=== PATIENT | female | born 1960 | race Caucasian/White ===

== ENCOUNTER 2017-08-18 03:41 | Emergency (ER) | payer MEDICAID ==
[2017-08-18] MEDS ORDERED: traMADol 50 MG Tab PO ONE (04:02)
[2017-08-18] MEDS ORDERED: Sodium Chloride 0.9% 10 ML Syringe FLUSH PRN (04:04)
[2017-08-18] MEDS ORDERED: Furosemide 80 MG Tab PO ONE (04:05)
[2017-08-18] MEDS ORDERED: Acetaminophen 325 MG Tab, 50 Tab Bulk Bottle PO ONE (04:07)
[2017-08-18] MEDS ORDERED: Diltiazem 120 MG Cap.CD PO ONE (04:07)
[2017-08-18] MEDS ORDERED: Aspirin 81 MG Tab.Chew PO ONE (04:07)
[2017-08-18] MEDS ORDERED: Lisinopril 10 MG Tab PO ONE (04:08)
[2017-08-18] MEDS ORDERED: Warfarin 2.5 MG Tab PO ONE (04:08)
[2017-08-18] MEDS ORDERED: Hydrochlorothiazide 12.5 MG Cap PO STA (04:09)
[2017-08-18] MEDS ORDERED: Carvedilol 6.25 MG Tab PO ONE (04:09)
--- NOTE | 2017-08-18 04:15 | EDM.PDOC ---
ED HPI GENERAL MEDICAL PROBLEM - General Chief Complaint: Respiratory Problem Stated Complaint: MEDICAL [facility]IA [facility] Time Seen by Provider: 08/18/17 03:55 Source of Information: Reports: Patient, EMS, Old Records History Limitations: Reports: Other (poor historian) - History of Present Illness INITIAL COMMENTS - FREE TEXT/NARRATIVE: 56 yo female here via EMS from her home with SOB mainly with exertion. Says she hasn't taken any of her meds because she is too SOB with exertion to look. No fever. No cough. Her chronic back pain is worse due to not taking her meds. Is on home oxygen, but still smokes, although not in the past 3 days. Has COPD and CHF and Afib. Lives with her who is in worse shape than her. Has been significantly more SOB for 3 days, but has not notified her primary. Onset: Gradual Onset Date: 08/15/17 Duration: Day(s):, Constant Location: Reports: Chest Severity: Mild Improves with: Reports: Rest Worsens with: Reports: Movement Context: Reports: Other (CHF and COPD hx) Associated Symptoms: Reports: Shortness of Breath (dionicio with exertion) Treatments CORRECTIONS CORPORAL: Reports: Breathing Treatments (per EMS with minimal benefit) Generalized Pain Score (Numeric/FACES): 6 - Related Data Allergies Allergy/AdvReac Type Severity Reaction Status Date / Time codeine Allergy Hives Verified 09/24/13 14:46 Home Meds: Home Meds Aspirin [Low Dose Aspirin EC] 81 mg PO DAILY 09/24/13 [History] Carvedilol [Coreg] 6.25 mg PO BID #60 tablet 02/13/15 [Rx] Diltiazem HCl [Diltiazem 24Hr Cd] 240 mg PO DAILY #30 cap.er.24h 02/13/15 [Rx] traZODone HCl [Trazodone HCl] 100 mg PO BEDTIME #30 tablet 02/13/15 [Rx] Gabapentin [Neurontin] 800 mg PO TID 03/25/15 [History] Acetaminophen 650 mg PO Q4H PRN #100 tablet 03/30/15 [Rx] Cyclobenzaprine [Flexeril] 10 mg PO BEDTIME PRN 06/02/15 [History] Ergocalciferol (Vitamin D2) [Drisdol] 50,000 unit PO .QW 06/02/15 [History] Lisinopril/Hydrochlorothiazide [Lisinopril-Hctz 10-12.5 mg Tab] 10 - 12.5 mg PO DAILY 06/02/15 [History] Venlafaxine [Effexor XR] 150 mg PO DAILY 06/02/15 [History] traMADol [Ultram] 50 mg PO Q6H PRN 06/02/15 [History] Albuterol Sulfate [Proair Hfa] 1 - 2 puff INH Q4H PRN 12/17/15 [History] Albuterol/Ipratropium [Combivent Respimat] 20 - 100 mcg INH QID PRN 12/17/15 [ History] Dextromethorphan/guaiFENesin [Robitussin DM] 5 ml PO TID 12/17/15 [History] Dextromethorphan/guaiFENesin [Robitussin Peak Cold DM, Adult] 5 ml PO Q4HR PRN 12/17/15 [History] Triamcinolone Acetonide [Kenalog 0.1% Crm] 0.1 percent TOP TID 12/17/15 [History ] Warfarin Sodium [Coumadin] 7.5 mg PO WE 12/17/15 [History] Warfarin [Coumadin] 5 mg PO SUMOTUTHFRSA 12/17/15 [History] clonazePAM [Klonopin] 0.5 mg PO TID 12/17/15 [History] Furosemide 80 mg PO DAILY #30 tablet 08/10/16 [Rx] Past Medical History Cardiovascular History: Reports: Afib, Hypertension Respiratory History: Reports: COPD Genitourinary History: Reports: UTI, Recurrent 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: Musculoskeletal History: Reports: Back Pain, Chronic Psychiatric History: Reports: PTSD Endocrine/Metabolic History: Reports: Hypothyroidism - Infectious Disease History Infectious Disease History: Reports: Chicken Pox - Past Surgical History GI Surgical History: Reports: Appendectomy, Cholecystectomy Female Surgical History: Reports: Tubal Ligation Endocrine Surgical History: Reports: Thyroidectomy Musculoskeletal Surgical History: Reports: Other (See Below) Dermatological Surgical History: Reports: Other (See Below) Social & Family History - Tobacco Use Smoking Status *Q: Current Every Day Smoker Years of Tobacco use: 35 Packs/Tins Daily: 0.5 Used Tobacco, but Quit: Yes Month Tobacco Last Used: Second Hand Smoke Exposure: No - Caffeine Use Caffeine Use: Reports: Coffee, Soda, Tea - Alcohol Use Days Per Week of Alcohol Use: 0 Number of Drinks Per Day: 1 Total Drinks Per Week: 0 - Recreational Drug Use Recreational Drug Use: No Drug Use in Last 12 Months: Yes Recreational Drug Type: Reports: Other (see below) Recreational Drug Use Frequency: Not Used In Over 5 Months ED ROS GENERAL - Review of Systems Review Of Systems: See Below Constitutional: Reports: No Symptoms. Denies: Fever HEENT: Reports: No Symptoms Respiratory: Reports: Shortness of Breath Cardiovascular: Reports: Dyspnea on Exertion Endocrine: Reports: No Symptoms GI/Abdominal: Reports: No Symptoms : Reports: No Symptoms Musculoskeletal: Reports: Back Pain (chronic) Skin: Reports: No Symptoms Neurological: Reports: No Symptoms Psychiatric: Reports: No Symptoms ED EXAM, GENERAL - Physical Exam Exam: See Below Exam Limited By: No Limitations General Appearance: Alert, WD/WN, No Apparent Distress, Obese Eye Exam: Bilateral Eye: Normal Inspection Ears: Normal External Exam, Normal Canal, Hearing Grossly Normal Ear Exam: Bilateral Ear: Auricle Normal, Canal Normal Nose: Normal Inspection, Normal Mucosa, No Blood Throat/Mouth: Normal Inspection, Normal Lips, Normal Oropharynx, Normal Voice, No Airway Compromise, Other (edentulous) Head: Atraumatic, Normocephalic Neck: Normal Inspection Respiratory/Chest: No Respiratory Distress, No Accessory Muscle Use, Decreased Breath Sounds (especially at bases) Cardiovascular: Irregularly Irregular GI/Abdominal: Normal Bowel Sounds, Soft, Non-Tender, No Distention Back Exam: Normal Inspection. No: CVA Tenderness (R), CVA Tenderness (L) Extremities: Pedal Edema Neurological: Alert, Oriented, CN II-XII Intact, Normal Cognition, No Motor/ Sensory Deficits Psychiatric: Normal Affect, Normal Mood Skin Exam: Warm, Dry, Intact, Normal Color Lymphatic: No Adenopathy Course - Vital Signs Last Recorded V/S: Last Vital Signs Temp 37.1 C 08/18/17 03:46 Pulse 98 08/18/17 04:43 Resp 20 08/18/17 03:46 BP 159/86 H 08/18/17 06:05 Pulse Ox 93 L 08/18/17 06:05 - Orders/Labs/Meds Orders: Active Orders 24 hr Category Date Time Status Chest 1V Frontal [CR] Stat Exams 08/18/17 04:03 Taken Sodium Chloride 0.9% [Saline Flush] Med 08/18/17 04:04 Active 10 ml FLUSH ASDIRECTED PRN Venlafaxine [Effexor XR] Med 08/18/17 05:00 Active 150 mg PO DAILY Saline Lock Insert [OM.PC] Routine Oth 08/18/17 04:04 Ordered Medication Orders Sodium Chloride (Saline Flush) 10 ml FLUSH ASDIRECTED PRN PRN Reason: Keep Vein Open Last Admin: 08/18/17 04:46 Dose: 10 ml Venlafaxine HCl (Effexor Xr) 150 mg PO DAILY [facility] Last Admin: 08/18/17 05:02 Dose: 150 mg Labs: Laboratory Tests 08/18/17 08/18/17 08/18/17 Range/Units 04:30 04:30 04:30 WBC 13.9 H (4.5-11.0) K/uL RBC 4.31 (3.30-5.50) M/uL Hgb 13.0 D (12.0-15.0) g/dL Hct 40.4 (36.0-48.0) % MCV 94 (80-98) fL MCH 30 (27-31) pg MCHC 32 (32-36) % Plt Count 273 (150-400) K/uL PT (9.5-12.0) sec INR (0.80-1.20) D-Dimer, Quantitative 289 (0.0-400.0) ng/mL Sodium 144 (140-148) mmol/L Potassium 4.2 (3.6-5.2) mmol/L Chloride 109 H (100-108) mmol/L Carbon Dioxide 29 (21-32) mmol/L Anion Gap 10.2 (5.0-14.0) mmol/L BUN 16 (7-18) mg/dL Creatinine 0.8 (0.6-1.0) mg/dL Est Cr Clr Drug Dosing 78.58 mL/min Estimated GFR (MDRD) > 60 (>60) Glucose 153 H (74-106) mg/dL Calcium 8.7 (8.5-10.1) mg/dL Troponin I 0.019 (0.000-0.056) ng/mL NT-Pro-B Natriuret Pep (5-125) pg/mL Urine Color Urine Appearance Urine pH (4.5-8.0) Ur Specific [place] (1.008-1.030) Urine Protein (NEGATIVE) mg/dL Urine Glucose (UA) (NEGATIVE) mg/dL Urine Ketones (NEGATIVE) mg/dL Urine Occult Blood (NEGATIVE) Urine Nitrite (NEGATIVE) Urine Bilirubin (NEGATIVE) Urine Urobilinogen (NORMAL) mg/dL Ur Leukocyte Esterase (NEGATIVE) Urine RBC (0-5) Urine WBC (0-5) Ur Epithelial Cells Amorphous Sediment Urine Bacteria Urine Mucus 08/18/17 08/18/17 08/18/17 Range/Units 04:30 04:30 06:15 WBC (4.5-11.0) K/uL RBC (3.30-5.50) M/uL Hgb (12.0-15.0) g/dL Hct (36.0-48.0) % MCV (80-98) fL MCH (27-31) pg MCHC (32-36) % Plt Count (150-400) K/uL PT 15.8 H (9.5-12.0) sec INR 1.45 H (0.80-1.20) D-Dimer, Quantitative (0.0-400.0) ng/mL Sodium (140-148) mmol/L Potassium (3.6-5.2) mmol/L Chloride (100-108) mmol/L Carbon Dioxide (21-32) mmol/L Anion Gap (5.0-14.0) mmol/L BUN (7-18) mg/dL Creatinine (0.6-1.0) mg/dL Est Cr Clr Drug Dosing mL/min Estimated GFR (MDRD) (>60) Glucose (74-106) mg/dL Calcium (8.5-10.1) mg/dL Troponin I (0.000-0.056) ng/mL NT-Pro-B Natriuret Pep 7738 H (5-125) pg/mL Urine Color Yellow Urine Appearance Clear Urine pH 7.0 (4.5-8.0) Ur Specific [place] 1.010 (1.008-1.030) Urine Protein Negative (NEGATIVE) mg/dL Urine Glucose (UA) Normal (NEGATIVE) mg/dL Urine Ketones Negative (NEGATIVE) mg/dL Urine Occult Blood Negative (NEGATIVE) Urine Nitrite Negative (NEGATIVE) Urine Bilirubin Small (NEGATIVE) Urine Urobilinogen 4 (NORMAL) mg/dL Ur Leukocyte Esterase Negative (NEGATIVE) Urine RBC 0-5 (0-5) Urine WBC 0-5 (0-5) Ur Epithelial Cells Few Amorphous Sediment Not seen Urine Bacteria Not seen Urine Mucus Not seen Meds: Medications Generic Name Dose Route Start Last Admin Trade Name Freq PRN Reason Stop Dose Admin Sodium Chloride 10 ml 08/18/17 04:04 08/18/17 04:46 Saline Flush FLUSH 10 ml ASDIRECTED PRN Administration Keep Vein Open Venlafaxine HCl 150 mg 08/18/17 05:00 08/18/17 05:02 Effexor Xr PO 150 mg DAILY PATRICK Administration Discontinued Medications Generic Name Dose Route Start Last Admin Trade Name Freq PRN Reason Stop Dose Admin Acetaminophen 650 mg 08/18/17 04:07 Tylenol Bulk Bottle PO 08/18/17 04:08 NOW ONE Acetaminophen 650 mg 08/18/17 04:16 08/18/17 04:42 Tylenol PO 08/18/17 04:17 650 mg NOW ONE Administration Aspirin 81 mg 08/18/17 04:07 08/18/17 04:43 Aspirin PO 08/18/17 04:08 81 mg ONETIME ONE Administration Carvedilol 6.25 mg 08/18/17 04:09 08/18/17 04:48 Coreg PO 08/18/17 04:10 6.25 mg ONETIME ONE Administration Diltiazem HCl 240 mg 08/18/17 04:07 08/18/17 04:43 Cardizem Cd PO 08/18/17 04:08 240 mg ONETIME ONE Administration Furosemide Confirm 08/18/17 04:43 08/18/17 04:50 Lasix Administered 08/18/17 04:44 Not Given Dose 80 mg .ROUTE .STK-MED ONE Furosemide 80 mg 08/18/17 04:49 08/18/17 04:51 Lasix PO 08/18/17 04:50 80 mg ONETIME ONE Administration Hydrochlorothiazide 12.5 mg 08/18/17 04:09 08/18/17 04:48 Hydrochlorothiazide PO 08/18/17 04:10 12.5 mg NOW STA Administration Lisinopril 10 mg 08/18/17 04:08 08/18/17 04:42 Prinivil PO 08/18/17 04:09 10 mg ONETIME ONE Administration Tramadol HCl 50 mg 08/18/17 04:02 08/18/17 04:43 Ultram PO 08/18/17 04:03 50 mg ONETIME ONE Administration Warfarin Sodium 7.5 mg 08/18/17 04:08 08/18/17 04:48 Coumadin PO 08/18/17 04:09 7.5 mg ONETIME ONE Administration - Radiology Interpretation Free Text/Narrative:: CXR- Departure - Departure Time of Disposition: 07:00 Disposition: Home, Self-Care 01 Condition: Fair Clinical Impression: CHF (congestive heart failure) Qualifiers: Congestive heart failure type: systolic Congestive heart failure chronicity: acute on chronic Qualified Code(s): I50.23 - Acute on chronic systolic ( congestive) heart failure - Discharge Information Referrals: PCP,None [Primary Care Provider] - Forms: ED Department Discharge - My Orders Last 24 Hours: My Active Orders 08/18/17 04:03 Chest 1V Frontal [CR] Stat 08/18/17 04:04 Sodium Chloride 0.9% [Saline Flush] 10 ml FLUSH ASDIRECTED PRN Saline Lock Insert [OM.PC] Routine 08/18/17 05:00 Venlafaxine [Effexor XR] 150 mg PO DAILY - Assessment/Plan Last 24 Hours: My Active Orders 08/18/17 04:03 Chest 1V Frontal [CR] Stat 08/18/17 04:04 Sodium Chloride 0.9% [Saline Flush] 10 ml FLUSH ASDIRECTED PRN Saline Lock Insert [OM.PC] Routine 08/18/17 05:00 Venlafaxine [Effexor XR] 150 mg PO DAILY
[2017-08-18] MEDS ORDERED: Acetaminophen 325 MG Tab PO ONE (04:16)
[2017-08-18] MEDS ORDERED: Furosemide 40 MG Tab ONE (04:43)
[2017-08-18] MEDS ORDERED: Furosemide 40 MG Tab PO ONE (04:49)
[2017-08-18] MEDS ORDERED: Venlafaxine 75 MG Cap.ER PO SCH (05:00)
[2017-08-18 06:49] VITALS: BP 138/69
--- NOTE | 2017-08-18 09:24 | CR ---
Chest 1V Frontal HISTORY: SOB COMPARISON: 08/10/2016 FINDINGS: Right pleural effusion appears mildly decreased placed in the interval. There may be mild interval in crease in left pleural fluid. No acute infiltrate is identified. Mild cardiomegaly is stable. No vasc ular redistribution is seen. I see no definite interstitial edema. Remainder of the exam is unchanged . IMPRESSION: Cardiomegaly with small bilateral pleural effusions. Right pleural fluid appears decreased since 08/10. Left pleural fluid may be mildly increased. No acute infiltrate or interstitial edema is ident ified.
== END 2017-08-18 07:00 | disposition home or self-care (01) ==
LOC: JP.ED 03:41
DX: I11.0 Hypertensive heart disease with heart failure (principal); I50.23 Acute on chronic systolic (congestive) heart failure; I48.91 Unspecified atrial fibrillation; I10 Essential (primary) hypertension; J44.9 Chronic obstructive pulmonary disease, unspecified; E03.9 Hypothyroidism, unspecified; F17.210 Nicotine dependence, cigarettes, uncomplicated; Z90.49 Acquired absence of other specified parts of digestive tract; Z98.51 Tubal ligation status; Z79.82 Long term (current) use of aspirin; Z79.899 Other long term (current) drug therapy; Z88.5 Allergy status to narcotic agent
CPT/HCPCS: 36415; 71010; 80048; 81001; 83880; 84484; 85027; 85379; 85610; 99285; A9270; J7050; 99284

== ENCOUNTER 2018-08-26 10:49 | Inpatient (IN) | payer MEDICAID ==
[2018-08-26] MEDS ORDERED: Furosemide 40 MG/4 ML VIAL IVPUSH ONE ×2 (11:05→18:00)
[2018-08-26] MEDS ORDERED: Albuterol/Ipratropium 3.0-0.5 MG/3 ML Neb Soln NEB ONE (11:05)
[2018-08-26] MEDS ORDERED: Diltiazem 25 MG/5 ML SDV IVPUSH ONE (11:11)
--- NOTE | 2018-08-26 11:24 | EDM.PDOC ---
ED HPI GENERAL MEDICAL PROBLEM - General Chief Complaint: Respiratory Problem Stated Complaint: MEDICAL [facility]IA [facility] Time Seen by Provider: 08/26/18 10:55 Source of Information: Reports: Patient, EMS - History of Present Illness INITIAL COMMENTS - FREE TEXT/NARRATIVE: 57-year-old with history of COPD on intermittent home O2, atrial fibrillation on Coumadin, and CHF who presents with concerns of shortness of breath. She reports that she is becoming progressively more short of breath over the last month, particularly during the last week. This has resulted in her being unable to leave her bed for the last couple days due to dyspnea. She has also increased usage of her home O2 to continuous 3 L, generally just uses this intermittently. Cough progressively increasing as well over the last month recently has been productive of dark green and black sputum. She reports some pain diffusely in her ribs which has developed when coughing. She otherwise denies any chest pain. She reports recent muscle aches her body as well, but does have a history of fibromyalgia. Reports that she felt febrile last night and had shaking chills. She has not been taking any of her medications at last several days due to feeling weak. 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 She denies any weight gain or lower extremity swelling. No abdominal pain, diarrhea, nausea/vomiting, or urinary symptoms. - Related Data Allergies Allergy/AdvReac Type Severity Reaction Status Date / Time codeine Allergy Hives Verified 08/26/18 10:55 Home Meds: Home Meds Aspirin [Low Dose Aspirin EC] 81 mg PO DAILY 09/24/13 [History] Diltiazem HCl [Diltiazem 24Hr Cd] 240 mg PO DAILY #30 cap.er.24h 02/13/15 [Rx] Gabapentin [Neurontin] 800 mg PO TID 03/25/15 [History] Acetaminophen 650 mg PO Q4H PRN #100 tablet 03/30/15 [Rx] Ergocalciferol (Vitamin D2) [Drisdol] 50,000 unit PO .QW 06/02/15 [History] Lisinopril/Hydrochlorothiazide [Lisinopril-Hctz 10-12.5 mg Tab] 10 - 12.5 mg PO DAILY 06/02/15 [History] Venlafaxine [Effexor XR] 150 mg PO DAILY 06/02/15 [History] Albuterol Sulfate [Proair Hfa] 1 - 2 puff INH Q4H PRN 12/17/15 [History] Albuterol/Ipratropium [Combivent Respimat] 20 - 100 mcg INH QID PRN 12/17/15 [ History] Dextromethorphan/guaiFENesin [Robitussin Peak Cold DM, Adult] 5 ml PO Q4HR PRN 12/17/15 [History] Triamcinolone Acetonide [Kenalog 0.1% Crm] 0.1 percent TOP BID 12/17/15 [History ] Warfarin Sodium [Coumadin] 7.5 mg PO WE 12/17/15 [History] Warfarin [Coumadin] 5 mg PO SUMOTUTHFRSA 12/17/15 [History] Furosemide 80 mg PO DAILY #30 tablet 08/10/16 [Rx] Carvedilol [Coreg] 12.5 mg PO BID 08/26/18 [History] Fluticasone Propionate [Flonase] 2 spray TOP DAILY 08/26/18 [History] Loratadine [Claritin] 10 mg PO DAILY PRN 08/26/18 [History] Trolamine Salicylate/Aloe Vera [Aspercreme 10%] 1 inch TP ASDIRECTED PRN [History] Past Medical History Cardiovascular History: Reports: Afib, Heart Failure, Hypertension Respiratory History: Reports: COPD Genitourinary History: Reports: UTI, Recurrent 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: Musculoskeletal History: Reports: Back Pain, Chronic Psychiatric History: Reports: PTSD Endocrine/Metabolic History: Reports: Hypothyroidism - Infectious Disease History Infectious Disease History: Reports: Chicken Pox - Past Surgical History GI Surgical History: Reports: Appendectomy, Cholecystectomy Female Surgical History: Reports: Tubal Ligation Endocrine Surgical History: Reports: Thyroidectomy Musculoskeletal Surgical History: Reports: Other (See Below) Dermatological Surgical History: Reports: Other (See Below) Social & Family History - Tobacco Use Smoking Status *Q: Former Smoker Used Tobacco, but Quit: Yes Month/Year Tobacco Last Used: 10 days - Caffeine Use Caffeine Use: Reports: Coffee, Energy Drinks, Soda, Tea - Alcohol Use Date of Last Drink: 08/19/18 - Recreational Drug Use Recreational Drug Use: No ED ROS GENERAL - Review of Systems Review Of Systems: See Below Constitutional: Reports: Fever, Chills HEENT: Reports: No Symptoms Respiratory: Reports: Shortness of Breath, Pleuritic Chest Pain, Cough, Sputum. Denies: Hemoptysis Cardiovascular: Reports: Dyspnea on Exertion. Denies: Edema Endocrine: Reports: No Symptoms GI/Abdominal: Denies: Abdominal Pain, Black Stool, Bloody Stool, Nausea, Vomiting : Denies: Dysuria Musculoskeletal: Reports: Muscle Pain Skin: Reports: Pruritis (reports possible bed bugs) Neurological: Denies: Confusion, Dizziness, Headache Psychiatric: Reports: No Symptoms Hematologic/Lymphatic: Reports: No Symptoms Immunologic: Reports: No Symptoms ED EXAM, GENERAL - Physical Exam Exam: See Below Exam Limited By: No Limitations General Appearance: Alert, WD/WN, No Apparent Distress Ears: Normal External Exam Nose: Normal Inspection Head: Atraumatic, Normocephalic Neck: Supple, Full Range of Motion Respiratory/Chest: Other (tachynpea) Cardiovascular: No Edema GI/Abdominal: Soft, Non-Tender Extremities: Normal Inspection Neurological: Alert, Oriented, CN II-XII Intact, Normal Cognition Psychiatric: Normal Affect, Normal Mood Skin Exam: Rash (excoriated sores on legs) EKG INTERPRETATION EKG Date: 08/26/18 Rhythm: A-Fib (with rapid ventricular response) P-Wave: Absent QRS: Normal ST-T: Normal QT: Prolonged Course - Vital Signs Last Recorded V/S: Last Vital Signs Temp 36.4 C 08/26/18 10:49 Pulse 125 H 08/26/18 11:52 Resp 16 08/26/18 10:49 BP 179/89 H 08/26/18 11:52 Pulse Ox 97 08/26/18 10:49 - Orders/Labs/Meds Orders: Active Orders 24 hr Category Date Time Status EKG Documentation Completion [RC] ASDIRECTED Care 08/26/18 11:04 Active RT Aerosol Therapy [RC] ASDIRECTED Care 08/26/18 11:06 Active CXR [Chest 2V] [CR] Stat Exams 08/26/18 11:04 Taken INFLUENZA A+B AG SCREEN [RM] Stat Lab 08/26/18 12:17 Ordered cefTRIAXone [Rocephin] 1 gm Med 08/26/18 12:24 Active Sodium Chloride 0.9% [Normal Saline] 50 ml IV ONETIME EKG 12 Lead [EK] Routine Ther 08/26/18 11:03 Ordered Medication Orders Ceftriaxone Sodium 1 gm/ (Sodium Chloride) 50 mls @ 100 mls/hr IV ONETIME ONE Stop: 08/26/18 12:53 Labs: Laboratory Tests 08/26/18 08/26/18 08/26/18 Range/Units 11:03 11:03 11:03 WBC 14.2 H (4.5-11.0) K/uL RBC 4.73 (3.30-5.50) M/uL Hgb 12.7 (12.0-15.0) g/dL Hct 39.8 (36.0-48.0) % MCV 84 (80-98) fL MCH 27 (27-31) pg MCHC 32 (32-36) % Plt Count 313 (150-400) K/uL PT (9.5-12.0) sec INR (0.80-1.20) Sodium 141 (140-148) mmol/L Potassium 4.1 (3.6-5.2) mmol/L Chloride 104 (100-108) mmol/L Carbon Dioxide 29 (21-32) mmol/L Anion Gap 8.4 (5.0-14.0) mmol/L BUN 16 (7-18) mg/dL Creatinine 1.0 (0.6-1.0) mg/dL Est Cr Clr Drug Dosing 57.41 mL/min Estimated GFR (MDRD) 57 L (>60) Glucose 134 H (74-106) mg/dL Calcium 8.9 (8.5-10.1) mg/dL Total Bilirubin 0.8 D (0.2-1.0) mg/dL AST 25 (15-37) U/L ALT 22 (12-78) U/L Alkaline Phosphatase 123 H (46-116) U/L NT-Pro-B Natriuret Pep 7903 H (5-125) pg/mL Total Protein 7.2 (6.4-8.2) g/dL Albumin 2.4 L (3.4-5.0) g/dL Globulin 4.8 H (2.3-3.5) g/dL Albumin/Globulin Ratio 0.5 L (1.2-2.2) 08/26/18 Range/Units 11:03 WBC (4.5-11.0) K/uL RBC (3.30-5.50) M/uL Hgb (12.0-15.0) g/dL Hct (36.0-48.0) % MCV (80-98) fL MCH (27-31) pg MCHC (32-36) % Plt Count (150-400) K/uL PT 12.5 H (9.5-12.0) sec INR 1.15 D (0.80-1.20) Sodium (140-148) mmol/L Potassium (3.6-5.2) mmol/L Chloride (100-108) mmol/L Carbon Dioxide (21-32) mmol/L Anion Gap (5.0-14.0) mmol/L BUN (7-18) mg/dL Creatinine (0.6-1.0) mg/dL Est Cr Clr Drug Dosing mL/min Estimated GFR (MDRD) (>60) Glucose (74-106) mg/dL Calcium (8.5-10.1) mg/dL Total Bilirubin (0.2-1.0) mg/dL AST (15-37) U/L ALT (12-78) U/L Alkaline Phosphatase (46-116) U/L NT-Pro-B Natriuret Pep (5-125) pg/mL Total Protein (6.4-8.2) g/dL Albumin (3.4-5.0) g/dL Globulin (2.3-3.5) g/dL Albumin/Globulin Ratio (1.2-2.2) Meds: Medications Generic Name Dose Route Start Last Admin Trade Name Freq PRN Reason Stop Dose Admin Ceftriaxone Sodium 1 gm/ 50 mls @ 100 mls/hr 08/26/18 12:24 Sodium Chloride IV 08/26/18 12:53 ONETIME ONE Discontinued Medications Generic Name Dose Route Start Last Admin Trade Name Freq PRN Reason Stop Dose Admin Albuterol/Ipratropium 3 ml 08/26/18 11:05 08/26/18 11:12 Duoneb 3.0-0.5 Mg/3 Ml NEB 08/26/18 11:06 3 ml ONETIME ONE Administration Diltiazem HCl 20 mg 08/26/18 11:11 08/26/18 11:52 Diltiazem IVPUSH 08/26/18 11:12 20 mg ONETIME ONE Administration Furosemide 40 mg 08/26/18 11:05 08/26/18 11:27 Lasix IVPUSH 08/26/18 11:06 40 mg ONETIME ONE Administration Prednisone 40 mg 08/26/18 11:34 08/26/18 11:41 Prednisone PO 08/26/18 11:35 40 mg ONETIME ONE Administration - Re-Assessments/Exams Free Text/Narrative Re-Assessment/Exam: 57-year-old with significant comorbidities as outlined presents with concerns of cough, dyspnea, possible fever. EKG shows A. fib with RVR. Given her history believe the most likely etiology of her symptoms is multifactorial including exacerbation of her COPD, as well as CHF (EF 30-35%) likely exacerbated by now been in atrial fibrillation with RVR and hypertensive due to medication noncompliance. She is anticoagulated with Coumadin, although INR may be subtherapeutic suspicion for PE at this time is low We're obtaining a chest x-ray, screening labs Administering Lasix, IV diltiazem, prednisone, and DuoNeb. 08/26/18 11:39 Free Text/Narrative Re-Assessment/Exam: Chest x-ray with bilateral pleural effusions and evidence of pulmonary edema Labs notable for leukocytosis and elevated BNP at 7900 Administering ceftriaxone for COPD exacerbation, avoiding fluoroquinolones given prolonged QT Rates adequately controlled with a single dose of IV diltiazem, have deferred starting a gtt to the hospitalist Case discussed with Dr Loredo, who will admit the patient for further work up and management 08/26/18 12:30 Departure - Departure Time of Disposition: 12:30 Disposition: Admitted As Inpatient 65 Clinical Impression: Acute on chronic respiratory failure with hypoxia, Atrial fibrillation with RVR , COPD exacerbation CHF exacerbation Qualifiers: Heart failure type: systolic Qualified Code(s): I50.23 - Acute on chronic systolic (congestive) heart failure - Discharge Information *PRESCRIPTION DRUG MONITORING PROGRAM REVIEWED*: No *COPY OF PRESCRIPTION DRUG MONITORING REPORT IN PATIENT KIRAN: No Referrals: Jj Hernandez MD [Primary Care Provider] - Forms: ED Department Discharge - My Orders Last 24 Hours: My Active Orders 08/26/18 11:03 EKG 12 Lead [EK] Routine 08/26/18 11:04 EKG Documentation Completion [RC] ASDIRECTED CXR [Chest 2V] [CR] Stat 08/26/18 11:06 RT Aerosol Therapy [RC] ASDIRECTED 08/26/18 12:17 INFLUENZA A+B AG SCREEN [RM] Stat 08/26/18 12:24 cefTRIAXone [Rocephin] 1 gm Sodium Chloride 0.9% [Normal Saline] 50 ml IV ONETIME - Assessment/Plan Last 24 Hours: My Active Orders 08/26/18 11:03 EKG 12 Lead [EK] Routine 08/26/18 11:04 EKG Documentation Completion [RC] ASDIRECTED CXR [Chest 2V] [CR] Stat 08/26/18 11:06 RT Aerosol Therapy [RC] ASDIRECTED 08/26/18 12:17 INFLUENZA A+B AG SCREEN [RM] Stat 08/26/18 12:24 cefTRIAXone [Rocephin] 1 gm Sodium Chloride 0.9% [Normal Saline] 50 ml IV ONETIME
[2018-08-26] MEDS ORDERED: predniSONE 20 MG Tab PO ONE (11:34)
[2018-08-26] MEDS ORDERED: cefTRIAXone 1 GM in Sodium Chloride 0.9% 50 ML IV ONE (12:24)
--- NOTE | 2018-08-26 13:23 | PCM.HP ---
H&P History of Present Illness - General Date of Service: 08/26/18 Admit Problem/Dx: Admission Diagnosis/Problem Admission Diagnosis/Problem Systolic CHF with reduced left ventricular function, NYHA class 2 Source of Information: Patient, Provider History Limitations: Reports: No Limitations - History of Present Illness Initial Comments - Free Text/Narative: Francisca presents to the emergency room by ambulance with complaints of shortness of breath. She reports feeling short of breath for the last month but especially so the past week. She has been using her oxygen at 3 L/m 24 hours per day rather than as needed like usual. She reports that she is short of breath with even minimal exertion and does have some orthopnea. She has not had any chest pain. She does have a cough that's occasionally productive for greenish sputum. She reports subjective fevers at home. She reports intermittent abdominal pains with occasional diarrhea. Her appetite has not been good and she's not had anything to eat in a couple of days. She reports that she has not been taking her medications for 10 days or more because she has not felt well. She hasn't noticed a significant increase in lower extremity edema. No obvious sick contacts or recent travel. Workup in the emergency room was suggestive of congestive heart failure with significant pulmonary edema and bilateral effusions. There is the possibility of a superimposed bronchitis. She is also in atrial fibrillation with a rapid ventricular response. She will be admitted to the intensive care unit for further management. - Related Data Allergies/Adverse Reactions: Allergies Allergy/AdvReac Type Severity Reaction Status Date / Time codeine Allergy Hives Verified 08/26/18 10:55 Home Medications: Home Meds Aspirin [Low Dose Aspirin EC] 81 mg PO DAILY 09/24/13 [History] Diltiazem HCl [Diltiazem 24Hr Cd] 240 mg PO DAILY #30 cap.er.24h 02/13/15 [Rx] Gabapentin [Neurontin] 800 mg PO TID 03/25/15 [History] Acetaminophen 650 mg PO Q4H PRN #100 tablet 03/30/15 [Rx] Ergocalciferol (Vitamin D2) [Drisdol] 50,000 unit PO .QW 06/02/15 [History] Lisinopril/Hydrochlorothiazide [Lisinopril-Hctz 10-12.5 mg Tab] 10 - 12.5 mg PO DAILY 06/02/15 [History] Venlafaxine [Effexor XR] 150 mg PO DAILY 06/02/15 [History] Albuterol Sulfate [Proair Hfa] 1 - 2 puff INH Q4H PRN 12/17/15 [History] Albuterol/Ipratropium [Combivent Respimat] 20 - 100 mcg INH QID PRN 12/17/15 [ History] Dextromethorphan/guaiFENesin [Robitussin Peak Cold DM, Adult] 5 ml PO Q4HR PRN 12/17/15 [History] Triamcinolone Acetonide [Kenalog 0.1% Crm] 0.1 percent TOP BID 12/17/15 [History ] Warfarin Sodium [Coumadin] 2.5 mg PO WE 12/17/15 [History] Warfarin [Coumadin] 5 mg PO SUMOTUTHFRSA 12/17/15 [History] Furosemide 80 mg PO DAILY #30 tablet 08/10/16 [Rx] Carvedilol [Coreg] 12.5 mg PO BID 08/26/18 [History] Fluticasone Propionate [Flonase] 2 spray TOP DAILY 08/26/18 [History] Loratadine [Claritin] 10 mg PO DAILY PRN 08/26/18 [History] Trolamine Salicylate/Aloe Vera [Aspercreme 10%] 1 inch TP ASDIRECTED PRN [History] Past Medical History Cardiovascular History: Reports: Afib, Heart Failure, Hypertension Respiratory History: Reports: COPD Genitourinary History: Reports: UTI, Recurrent [employer] History: Reports: Musculoskeletal History: Reports: Back Pain, Chronic Psychiatric History: Reports: PTSD Endocrine/Metabolic History: Reports: Hypothyroidism - Infectious Disease History Infectious Disease History: Reports: Chicken Pox - Past Surgical History GI Surgical History: Reports: Appendectomy, Cholecystectomy Female Surgical History: Reports: Tubal Ligation Endocrine Surgical History: Reports: Thyroidectomy Musculoskeletal Surgical History: Reports: Other (See Below) Dermatological Surgical History: Reports: Other (See Below) Social & Family History - Family History Cardiac: Denies: CAD - Tobacco Use Smoking Status *Q: Former Smoker Used Tobacco, but Quit: Yes Month/Year Tobacco Last Used: 10 days - Caffeine Use Caffeine Use: Reports: Coffee, Energy Drinks, Soda, Tea - Alcohol Use Date of Last Drink: 08/19/18 - Recreational Drug Use Recreational Drug Use: No H&P Review of Systems - Review of Systems: Review Of Systems: See Below Free Text/Narrative: A complete 12 point review of systems was obtained. Pertinent positives and negatives are noted in the history of present illness. All other systems were reviewed and were negative except as noted. Exam - Exam Exam: See Below - Vital Signs Vital Signs: Last Vital Signs Temp 36.1 C 08/26/18 13:13 Pulse 80 08/26/18 13:13 Resp 14 08/26/18 13:13 BP 179/83 H 08/26/18 13:13 Pulse Ox 96 08/26/18 13:13 Weight: 113.2 kg - Exam Quality Assessment: Supplemental Oxygen General: Alert, Oriented, Cooperative, Mild Distress HEENT: Conjunctiva Clear. No: Mucosa Moist & [place] (dry), Scleral Icterus Neck: Supple, Trachea Midline, JVD. No: Lymphadenopathy Lungs: Decreased Breath Sounds (both bases), Crackles (both bases and mid lung) . No: Normal Respiratory Effort (increased work of breathing ), Wheezing Cardiovascular: Irregular Rhythm, Tachycardia. No: Systolic Murmur GI/Abdominal Exam: Normal Bowel Sounds, Soft, Non-Tender, No Distention Extremities: Pedal Edema. No: Increased Warmth Skin: Warm, Dry. No: Rash (papular scabbed rash on lower legs above the ankles. A few lesions on her forearms) Neuro Extensive - Mental Status: Alert, Oriented x3, Nl Response to Commands Neuro Extensive - Motor, Sensory, Reflexes: CN II-XII Intact. No: Dysarthria, Abnormal Motor Psychiatric: Alert, Normal Affect - Patient Data Lab Results Last 24 hrs: Laboratory Results - last 24 hr 08/26/18 08/26/18 08/26/18 Range/Units 11:03 11:03 11:03 WBC 14.2 H (4.5-11.0) K/uL RBC 4.73 (3.30-5.50) M/uL Hgb 12.7 (12.0-15.0) g/dL Hct 39.8 (36.0-48.0) % MCV 84 (80-98) fL MCH 27 (27-31) pg MCHC 32 (32-36) % Plt Count 313 (150-400) K/uL PT (9.5-12.0) sec INR (0.80-1.20) Sodium 141 (140-148) mmol/L Potassium 4.1 (3.6-5.2) mmol/L Chloride 104 (100-108) mmol/L Carbon Dioxide 29 (21-32) mmol/L Anion Gap 8.4 (5.0-14.0) mmol/L BUN 16 (7-18) mg/dL Creatinine 1.0 (0.6-1.0) mg/dL Est Cr Clr Drug Dosing 57.41 mL/min Estimated GFR (MDRD) 57 L (>60) Glucose 134 H (74-106) mg/dL Calcium 8.9 (8.5-10.1) mg/dL Total Bilirubin 0.8 D (0.2-1.0) mg/dL AST 25 (15-37) U/L ALT 22 (12-78) U/L Alkaline Phosphatase 123 H (46-116) U/L NT-Pro-B Natriuret Pep 7903 H (5-125) pg/mL Total Protein 7.2 (6.4-8.2) g/dL Albumin 2.4 L (3.4-5.0) g/dL Globulin 4.8 H (2.3-3.5) g/dL Albumin/Globulin Ratio 0.5 L (1.2-2.2) 08/26/18 Range/Units 11:03 WBC (4.5-11.0) K/uL RBC (3.30-5.50) M/uL Hgb (12.0-15.0) g/dL Hct (36.0-48.0) % MCV (80-98) fL MCH (27-31) pg MCHC (32-36) % Plt Count (150-400) K/uL PT 12.5 H (9.5-12.0) sec INR 1.15 D (0.80-1.20) Sodium (140-148) mmol/L Potassium (3.6-5.2) mmol/L Chloride (100-108) mmol/L Carbon Dioxide (21-32) mmol/L Anion Gap (5.0-14.0) mmol/L BUN (7-18) mg/dL Creatinine (0.6-1.0) mg/dL Est Cr Clr Drug Dosing mL/min Estimated GFR (MDRD) (>60) Glucose (74-106) mg/dL Calcium (8.5-10.1) mg/dL Total Bilirubin (0.2-1.0) mg/dL AST (15-37) U/L ALT (12-78) U/L Alkaline Phosphatase (46-116) U/L NT-Pro-B Natriuret Pep (5-125) pg/mL Total Protein (6.4-8.2) g/dL Albumin (3.4-5.0) g/dL Globulin (2.3-3.5) g/dL Albumin/Globulin Ratio (1.2-2.2) Result Diagrams: 08/26/18 11:03 08/26/18 11:03 Art Results Last 24 hrs: Microbiology 08/26/18 12:17 Influenza Type A Antigen Screen - Final Nasal, Unspecified NEGATIVE INFLUENZA A VIRUS AG Influenza Type B Antigen Screen - Final NEGATIVE INFLUENZA B VIRUS AG Imaging Impressions Last 24 hrs: CXR - images personally reviewed - there is increased cephalization and small bilateral effusions. Heart size is normal. No mass or infiltrate. *Q Meaningful Use (ADM) - VTE Risk Assess *Q Each Risk Factor Represents 1 Point: Age 41 - 59 years, Swollen Legs, Current, Obesity ( BMI > 25 kg/m2), Congestive heart failure (CHF), Abnormal Pulmonary Function (COPD) Total Score 1 Point Risk Factors: 5 Each Risk Factor Represents 2 Points: None Total Score 2 Point Risk Factors: 0 Each Risk Factor Represents 3 Points: None Total Score 3 Point Risk Factors: 0 Each Risk Factor Represents 5 Points: None Total Score 5 Point Risk Factors: 0 Venous Thromboembolism Risk Factor Score *Q: 5 - Problem List (1) CHF (congestive heart failure) SNOMED Code(s): 00799353 ICD Code: I50.9 - HEART FAILURE, UNSPECIFIED Status: Acute Current Visit : No (2) Acute on chronic respiratory failure with hypoxia SNOMED Code(s): 08425653, 831442141 ICD Code: J96.21 - ACUTE AND CHRONIC RESPIRATORY FAILURE WITH HYPOXIA Status: Acute Current Visit: Yes (3) Atrial fibrillation with RVR SNOMED Code(s): 288592475105751 ICD Code: I48.91 - UNSPECIFIED ATRIAL FIBRILLATION Status: Acute Current Visit: Yes (4) Acute bronchitis SNOMED Code(s): 12899937 ICD Code: J20.9 - ACUTE BRONCHITIS, UNSPECIFIED Status: Acute Current Visit: Yes Qualifiers: Bronchitis organism: unspecified organism Qualified Code(s): J20.9 - Acute bronchitis, unspecified (5) Tobacco dependence SNOMED Code(s): 87778262 ICD Code: F17.200 - NICOTINE DEPENDENCE, UNSPECIFIED, UNCOMPLICATED Status : Chronic Current Visit: Yes Problem List Initiated/Reviewed/Updated: Yes Orders Last 24hrs: Active Orders 24 hr Category Date Time Status Patient Status Manage Transfer [TRANSFER] Routine ADT 08/26/18 13:07 Ordered EKG Documentation Completion [RC] ASDIRECTED Care 08/26/18 11:04 Active RT Aerosol Therapy [RC] ASDIRECTED Care 08/26/18 11:06 Active CXR [Chest 2V] [CR] Stat Exams 08/26/18 11:04 Taken Resuscitation Status Routine Resus Stat 08/26/18 13:10 Ordered EKG 12 Lead [EK] Routine Ther 08/26/18 11:03 Ordered Assessment/Plan Comment:: ASSESSMENT AND PLAN - Acute exacerbation of systolic congestive heart failure - symptoms include shortness of breath and dyspnea on exertion as well as orthopnea. Imaging and examination both consistent with decompensated congestive heart failure. Last echocardiogram was more than one year ago. Medication noncompliance as well as probable dietary indiscretions seem to be the main contributor factors to her exacerbation. -Second dose of furosemide this evening -Intake and output monitoring -Restart diuresis in the morning -Restart beta braulio tonight -Restart SARA inhibitor in the morning -Echocardiogram on Tuesday Atrial fibrillation with rapid ventricular response - patient not taking medications and INR is normal at this time. She does not have significant symptoms with the tachycardia. -Trial of immediate release diltiazem, transition to long-acting versus dull drip depending on response -Beta braulio -Cardiac monitoring -Restart warfarin Probable acute bronchitis - patient with cough as well as abnormal the sputum color. She's not currently febrile but does have leukocytosis. She received ceftriaxone in the emergency room. -Doxycycline -Cough suppressant Acute on chronic respiratory failure with hypoxia - likely multifactorial with bronchitis and CHF. -Supplement oxygen as needed Tobacco dependence - she is in early stages of cessation and has been abstinent for 10 days. -Continue to encourage cessation Maintenance issues - - DVT prophylaxis - enoxaparin - GI prophylaxis - not indicated - Nutrition - regular diet - Millan catheter - not indicated CODE STATUS - full code Admission justification - This patient will be admitted for inpatient services and is medically appropriate meeting medical necessity for inpatient admission as outlined in my documentation. I reasonably expect the patient will require inpatient services that span a period time over 2 midnights. I reasonably expect this patient to be discharged or transferred within 96 hours after admission to the [facility]. Disposition - I would anticipate discharge to home after the hospital stay Primary care physician - [] Hitesh Loredo M.D.
[2018-08-26] MEDS ORDERED: Ondansetron 4 MG Tab.DIS PO PRN (13:50)
[2018-08-26] MEDS ORDERED: Albuterol 0.083% 2.5 MG/3 ML Neb Soln NEB PRN (13:50)
[2018-08-26] MEDS ORDERED: Acetaminophen 325 MG Tab PO PRN (13:50)
[2018-08-26] MEDS ORDERED: Non-Formulary Medication 1 Each (Gabapentin [Neurontin] 800 MG) PO SCH (14:00)
[2018-08-26] MEDS: Albuterol/Ipratropium 3.0-0.5 MG/3 ML Neb Soln NEB SCH ×2 (14:40→20:36)
[2018-08-26] MEDS: Gabapentin 400 MG Cap PO SCH ×2 (14:43→20:36)
[2018-08-26] MEDS: Diltiazem IR 30 MG Tab PO SCH ×2 (14:44→20:36)
[2018-08-26] MEDS: oxyCODONE 5 MG Tab PO PRN (19:31)
[2018-08-26] MEDS: Doxycycline 100 MG Cap PO SCH (20:36)
[2018-08-26] MEDS: Carvedilol 12.5 MG Tab PO SCH (20:36)
[2018-08-26] MEDS ORDERED: Carvedilol 6.25 MG Tab PO SCH (21:00)
[2018-08-27] MEDS: Diltiazem IR 30 MG Tab PO SCH (02:04)
[2018-08-27] MEDS: Albuterol/Ipratropium 3.0-0.5 MG/3 ML Neb Soln NEB SCH ×4 (07:33→20:29)
[2018-08-27] MEDS ORDERED: Potassium Chloride 20 MEQ Tab.ER PO ONE (08:30)
[2018-08-27] MEDS: oxyCODONE 5 MG Tab PO PRN ×3 (08:40→20:37)
[2018-08-27] MEDS: Gabapentin 400 MG Cap PO SCH ×3 (08:42→20:29)
--- NOTE | 2018-08-27 08:42 | PCM.PN ---
- General Info Date of Service: 08/27/18 Subjective Update: There were no acute events overnight. Pain well controlled. Heart rate responded nicely to oral diltiazem. Shortness of breath has improved with diuresis. Her mild lower extremity edema has resolved. She has not had any fevers overnight. Appetite has been excellent. Functional Status: Reports: Pain Controlled, Tolerating Diet - Review of Systems General: Reports: Weakness Pulmonary: Reports: Shortness of Breath - Patient Data Vitals - Most Recent: Last Vital Signs Temp 37.0 C 08/27/18 07:57 Pulse 95 08/27/18 07:57 Resp 20 08/27/18 07:57 BP 137/71 08/27/18 07:57 Pulse Ox 90 L 08/27/18 07:57 Weight - Most Recent: 113.2 kg I&O - Last 24 Hours: Intake & Output 08/26/18 08/27/18 08/27/18 22:59 06:59 14:59 Intake Total 830 240 Output Total 1600 200 300 Balance -770 40 -300 Lab Results Last 24 Hours: Laboratory Results - last 24 hr 08/26/18 08/26/18 08/26/18 Range/Units 11:03 11:03 11:03 WBC 14.2 H (4.5-11.0) K/uL RBC 4.73 (3.30-5.50) M/uL Hgb 12.7 (12.0-15.0) g/dL Hct 39.8 (36.0-48.0) % MCV 84 (80-98) fL MCH 27 (27-31) pg MCHC 32 (32-36) % Plt Count 313 (150-400) K/uL PT (9.5-12.0) sec INR (0.80-1.20) Sodium 141 (140-148) mmol/L Potassium 4.1 (3.6-5.2) mmol/L Chloride 104 (100-108) mmol/L Carbon Dioxide 29 (21-32) mmol/L Anion Gap 8.4 (5.0-14.0) mmol/L BUN 16 (7-18) mg/dL Creatinine 1.0 (0.6-1.0) mg/dL Est Cr Clr Drug Dosing 57.41 mL/min Estimated GFR (MDRD) 57 L (>60) Glucose 134 H (74-106) mg/dL Calcium 8.9 (8.5-10.1) mg/dL Magnesium (1.8-2.4) mg/dL Total Bilirubin 0.8 D (0.2-1.0) mg/dL AST 25 (15-37) U/L ALT 22 (12-78) U/L Alkaline Phosphatase 123 H (46-116) U/L NT-Pro-B Natriuret Pep 7903 H (5-125) pg/mL Total Protein 7.2 (6.4-8.2) g/dL Albumin 2.4 L (3.4-5.0) g/dL Globulin 4.8 H (2.3-3.5) g/dL Albumin/Globulin Ratio 0.5 L (1.2-2.2) Free T4 (0.76-1.46) ng/dL TSH, Ultra Sensitive (0.358-3.740) uIU/mL 08/26/18 08/27/18 08/27/18 Range/Units 11:03 05:11 05:11 WBC 16.4 H (4.5-11.0) K/uL RBC 4.46 (3.30-5.50) M/uL Hgb 11.9 L (12.0-15.0) g/dL Hct 37.6 (36.0-48.0) % MCV 84 (80-98) fL MCH 27 (27-31) pg MCHC 32 (32-36) % Plt Count 294 (150-400) K/uL PT 12.5 H (9.5-12.0) sec INR 1.15 D (0.80-1.20) Sodium 140 (140-148) mmol/L Potassium 3.3 L (3.6-5.2) mmol/L Chloride 104 (100-108) mmol/L Carbon Dioxide 27 (21-32) mmol/L Anion Gap 12.3 (5.0-14.0) mmol/L BUN 26 H D (7-18) mg/dL Creatinine 1.1 H (0.6-1.0) mg/dL Est Cr Clr Drug Dosing 54.21 mL/min Estimated GFR (MDRD) 51 L (>60) Glucose 207 H (74-106) mg/dL Calcium 8.8 (8.5-10.1) mg/dL Magnesium 1.8 (1.8-2.4) mg/dL Total Bilirubin (0.2-1.0) mg/dL AST (15-37) U/L ALT (12-78) U/L Alkaline Phosphatase (46-116) U/L NT-Pro-B Natriuret Pep (5-125) pg/mL Total Protein (6.4-8.2) g/dL Albumin (3.4-5.0) g/dL Globulin (2.3-3.5) g/dL Albumin/Globulin Ratio (1.2-2.2) Free T4 1.97 H (0.76-1.46) ng/dL TSH, Ultra Sensitive 0.000 L (0.358-3.740) uIU/mL Art Results Last 24 Hours: Microbiology 08/26/18 12:17 Influenza Type A Antigen Screen - Final Nasal, Unspecified NEGATIVE INFLUENZA A VIRUS AG Influenza Type B Antigen Screen - Final NEGATIVE INFLUENZA B VIRUS AG Med Orders - Current: Current Medications Acetaminophen (Tylenol) 650 mg PO Q4H PRN PRN Reason: Pain Albuterol (Proventil Neb Soln) 2.5 mg NEB Q4H PRN PRN Reason: Shortness Of Breath/wheezing Albuterol/Ipratropium (Duoneb 3.0-0.5 Mg/3 Ml) 3 ml NEB QIDRT [facility] Last Admin: 08/27/18 07:33 Dose: 3 ml Aspirin (Halfprin) 81 mg PO DAILY [facility] Carvedilol (Coreg) 12.5 mg PO BID [facility] Last Admin: 08/26/18 20:36 Dose: 12.5 mg Diltiazem HCl (Cardizem Cd) 240 mg PO DAILY [facility] Doxycycline Hyclate (Vibramycin) 100 mg PO Q12H [facility] Last Admin: 08/26/18 20:36 Dose: 100 mg Enoxaparin Sodium (Lovenox) 40 mg SUBCUT DAILY [facility] Furosemide (Lasix) 40 mg IVPUSH DAILY [facility] Furosemide (Lasix) 40 mg IVPUSH ONETIME ONE Stop: 08/27/18 15:01 Gabapentin (Neurontin) 800 mg PO TID [facility] Last Admin: 08/26/18 20:36 Dose: 800 mg Hydrochlorothiazide (Hydrochlorothiazide) 12.5 mg PO DAILY [facility] Lisinopril (Prinivil) 10 mg PO DAILY [facility] Ondansetron HCl (Zofran Odt) 4 mg PO Q6H PRN PRN Reason: Nausea able to take PO Oxycodone HCl (Oxycodone) 5 mg PO Q4H PRN PRN Reason: Pain (moderate 4-6) Last Admin: 08/27/18 08:40 Dose: 5 mg Prednisone (Prednisone) 40 mg PO DAILY [facility] Stop: 08/28/18 09:01 Venlafaxine HCl (Effexor Xr) 300 mg PO DAILY [facility] Discontinued Medications Albuterol/Ipratropium (Duoneb 3.0-0.5 Mg/3 Ml) 3 ml NEB ONETIME ONE Stop: 08/26/18 11:06 Last Admin: 08/26/18 11:12 Dose: 3 ml Diltiazem HCl (Diltiazem) 20 mg IVPUSH ONETIME ONE Stop: 08/26/18 11:12 Last Admin: 08/26/18 11:52 Dose: 20 mg Diltiazem HCl (Cardizem) 60 mg PO Q6H [facility] Last Admin: 08/27/18 02:04 Dose: 60 mg Furosemide (Lasix) 40 mg IVPUSH ONETIME ONE Stop: 08/26/18 11:06 Last Admin: 08/26/18 11:27 Dose: 40 mg Furosemide (Lasix) 40 mg IVPUSH ONETIME ONE Stop: 08/26/18 18:01 Last Admin: 08/26/18 17:24 Dose: 40 mg Ceftriaxone Sodium 1 gm/ (Sodium Chloride) 50 mls @ 100 mls/hr IV ONETIME ONE Stop: 08/26/18 12:53 Last Admin: 08/26/18 13:00 Dose: 100 mls/hr Potassium Chloride (Klor-Con M20) 40 meq PO ONETIME ONE Stop: 08/27/18 08:31 Last Admin: 08/27/18 08:41 Dose: 40 meq Prednisone (Prednisone) 40 mg PO ONETIME ONE Stop: 08/26/18 11:35 Last Admin: 08/26/18 11:41 Dose: 40 mg Venlafaxine HCl (Effexor Xr) 150 mg PO DAILY [facility] - Exam Quality Assessment: No: Supplemental Oxygen General: Alert, Oriented, Cooperative, No Acute Distress Lungs: Normal Respiratory Effort, Crackles (both bases) Cardiovascular: Regular Rate, Irregular Rhythm GI/Abdominal Exam: Soft, No Distention Extremities: No Pedal Edema Psy/Mental Status: Alert, Normal Affect - Problem List & Annotations (1) CHF (congestive heart failure) SNOMED Code(s): 55473155 Code(s): I50.9 - HEART FAILURE, UNSPECIFIED Status: Acute Current Visit: No (2) Acute on chronic respiratory failure with hypoxia SNOMED Code(s): 43084556, 985595612 Code(s): J96.21 - ACUTE AND CHRONIC RESPIRATORY FAILURE WITH HYPOXIA Status : Acute Current Visit: Yes (3) Atrial fibrillation with RVR SNOMED Code(s): 562067599766450 Code(s): I48.91 - UNSPECIFIED ATRIAL FIBRILLATION Status: Acute Current Visit: Yes (4) Acute bronchitis SNOMED Code(s): 58446553 Code(s): J20.9 - ACUTE BRONCHITIS, UNSPECIFIED Status: Acute Current Visit: Yes Qualifiers: Bronchitis organism: unspecified organism Qualified Code(s): J20.9 - Acute bronchitis, unspecified (5) Tobacco dependence SNOMED Code(s): 67053991 Code(s): F17.200 - NICOTINE DEPENDENCE, UNSPECIFIED, UNCOMPLICATED Status: Chronic Current Visit: Yes - Problem List Review Problem List Initiated/Reviewed/Updated: Yes - My Orders Last 24 Hours: My Active Orders 08/26/18 13:10 Resuscitation Status Routine 08/26/18 13:50 Patient Status [ADT] Routine Intake and Output [RC] QSHIFT Notify Provider Vital Signs [RC] ASDIRECTED Oxygen Therapy [RC] PRN RT Aerosol Therapy [RC] ASDIRECTED Up ad Yolanda [RC] ASDIRECTED VTE/DVT Education [RC] Per Unit Routine Vital Signs [RC] Q4H Acetaminophen [Tylenol] 650 mg PO Q4H PRN Albuterol [Proventil Neb Soln] 2.5 mg NEB Q4H PRN Ondansetron [Zofran ODT] 4 mg PO Q6H PRN oxyCODONE 5 mg PO Q4H PRN 08/26/18 14:30 Gabapentin [Neurontin] 800 mg PO TID 08/26/18 15:00 Albuterol/Ipratropium [DuoNeb 3.0-0.5 MG/3 ML] 3 ml NEB QIDRT 08/26/18 21:00 Carvedilol [Coreg] 12.5 mg PO BID Doxycycline [Vibramycin] 100 mg PO Q12H 08/26/18 Dinner Regular Diet [DIET] 08/27/18 08:39 Transfer Patient (Change bed) [ADT] Routine Discontinue Telemetry Monitoring [Cardiac Monitoring Discontinue] [RC] Click to Edit 08/27/18 09:00 Aspirin [Halfprin] 81 mg PO DAILY Diltiazem [Cardizem CD] 240 mg PO DAILY Enoxaparin [Lovenox] 40 mg SUBCUT DAILY Furosemide [Lasix] 40 mg IVPUSH DAILY Lisinopril [Prinivil] 10 mg PO DAILY Venlafaxine [Effexor XR] 300 mg PO DAILY hydroCHLOROthiazide 12.5 mg PO DAILY predniSONE 40 mg PO DAILY 08/27/18 15:00 Furosemide [Lasix] 40 mg IVPUSH ONETIME ONE 08/28/18 05:00 BASIC METABOLIC PANEL,BMP [CHEM] Timed CBC W/O DIFF,HEMOGRAM [HEME] Timed (1) 08/28/18 07:00 Echo Comp wo Cont [US] Routine - Plan Plan:: ASSESSMENT AND PLAN - Acute exacerbation of systolic congestive heart failure - feeling better and respiratory status has improved with diuresis yesterday. Off supplemental oxygen as of early this morning but still has some crackles on pulmonary exam. -Second dose of furosemide this afternoon -Intake and output monitoring -Continue medical management including pain braulio and SARA inhibitor -Echocardiogram on Tuesday Atrial fibrillation with rapid ventricular response - heart rate responded nicely to oral diltiazem and she will be transitioned to long-acting diltiazem. -Transition to long-acting diltiazem -Beta braulio -Discontinue Cardiac monitoring -Continue warfarin Probable acute bronchitis - patient with cough as well as abnormal the sputum color. Feeling better with antibiotic therapy. -Doxycycline -Cough suppressant Acute on chronic respiratory failure with hypoxia - likely multifactorial with bronchitis and CHF. -Supplement oxygen as needed Tobacco dependence - she is in early stages of cessation and has been abstinent for 10 days. -Continue to encourage cessation Maintenance issues - - DVT prophylaxis - enoxaparin - GI prophylaxis - not indicated - Nutrition - regular diet Disposition - I would anticipate discharge to home after the hospital stay. She will be transferred out of the intensive care unit today. Hitesh Loredo M.D.
[2018-08-27] MEDS: Diltiazem 120 MG Cap.CD PO SCH (08:45)
[2018-08-27] MEDS: Aspirin 81 MG Tab.EC PO SCH (08:46)
[2018-08-27] MEDS: Carvedilol 12.5 MG Tab PO SCH ×2 (08:47→20:26)
[2018-08-27] MEDS: Doxycycline 100 MG Cap PO SCH ×2 (08:48→20:30)
[2018-08-27] MEDS: Lisinopril 10 MG Tab PO SCH (08:49)
[2018-08-27] MEDS: Hydrochlorothiazide 12.5 MG Cap PO SCH (08:50)
[2018-08-27] MEDS: Enoxaparin 40 MG/0.4 ML Syringe SUBCUT SCH (08:51)
[2018-08-27] MEDS ORDERED: Venlafaxine 75 MG Cap.ER PO SCH (09:00)
[2018-08-27] MEDS ORDERED: Non-Formulary Medication 1 Each (Diltiazem Hcl [Diltiazem 24hr Cd] 240 MG) PO SCH (09:00)
[2018-08-27] MEDS ORDERED: Non-Formulary Medication 1 Each (Venlafaxine [Effexor Xr] 150 MG) PO SCH (09:00)
[2018-08-27] MEDS: Furosemide 40 MG/4 ML VIAL IVPUSH SCH (09:09)
[2018-08-27] MEDS: Venlafaxine 75 MG Cap.ER PO SCH (09:19)
[2018-08-27] MEDS: predniSONE 20 MG Tab PO SCH (09:21)
[2018-08-27] MEDS ORDERED: Furosemide 40 MG/4 ML VIAL IVPUSH ONE (15:00)
[2018-08-28] MEDS: oxyCODONE 5 MG Tab PO PRN ×2 (02:33→10:37)
[2018-08-28] MEDS: Albuterol/Ipratropium 3.0-0.5 MG/3 ML Neb Soln NEB SCH ×2 (07:34→10:31)
--- NOTE | 2018-08-28 08:45 | CR ---
CHEST: 2 view CLINICAL HISTORY:CHF COMPARISON:2017 FINDINGS: Heart is mildly enlarged. Pulmonary vascularity is cephalized. Mild interstitial prominenc e. The patient has small bilateral pleural effusions. Impression: Pulmonary vascular congestion with mild pulmonary edema and small effusions consistent wi th CHF
[2018-08-28 09:55] VITALS: BP 163/86
[2018-08-28] MEDS: Venlafaxine 75 MG Cap.ER PO SCH (09:57)
[2018-08-28] MEDS: Gabapentin 400 MG Cap PO SCH (09:57)
[2018-08-28] MEDS: Doxycycline 100 MG Cap PO SCH (09:57)
[2018-08-28] MEDS: predniSONE 20 MG Tab PO SCH (09:58)
[2018-08-28] MEDS: Hydrochlorothiazide 12.5 MG Cap PO SCH (09:58)
[2018-08-28] MEDS: Lisinopril 10 MG Tab PO SCH (09:59)
[2018-08-28] MEDS: Diltiazem 120 MG Cap.CD PO SCH (10:00)
[2018-08-28] MEDS: Aspirin 81 MG Tab.EC PO SCH (10:02)
[2018-08-28] MEDS: Carvedilol 12.5 MG Tab PO SCH (10:02)
--- NOTE | 2018-08-28 10:23 | PCM.DCSUM1 ---
Discharge Summary - Hospital Course Brief History: 57-year-old female with history of systolic congestive heart failure, COPD, tobacco dependence as well as chronic atrial fibrillation who presented with increased shortness of breath. She was admitted for management of acute decompensated congestive heart failure and acute bronchitis. Diagnosis: Stroke: No - Discharge Data Discharge Date: 08/28/18 Discharge Disposition: Home, Self-Care 01 Condition: Fair - Discharge Diagnosis/Problem(s) (1) CHF (congestive heart failure) SNOMED Code(s): 47914571 ICD Code: I50.9 - HEART FAILURE, UNSPECIFIED Status: Acute (2) Acute on chronic respiratory failure with hypoxia SNOMED Code(s): 22045252, 210057365 ICD Code: J96.21 - ACUTE AND CHRONIC RESPIRATORY FAILURE WITH HYPOXIA Status: Acute (3) Atrial fibrillation with RVR SNOMED Code(s): 190032254852741 ICD Code: I48.91 - UNSPECIFIED ATRIAL FIBRILLATION Status: Acute (4) Acute bronchitis SNOMED Code(s): 05400944 ICD Code: J20.9 - ACUTE BRONCHITIS, UNSPECIFIED Status: Acute Qualifiers: Bronchitis organism: unspecified organism Qualified Code(s): J20.9 - Acute bronchitis, unspecified (5) Tobacco dependence SNOMED Code(s): 75990307 ICD Code: F17.200 - NICOTINE DEPENDENCE, UNSPECIFIED, UNCOMPLICATED Status : Chronic - Patient Summary/Data Hospital Course: Francisca presented to the emergency room with acute on chronic shortness of breath. Workup in the emergency room was suggestive of congestive heart failure based on examination and abnormal chest x-ray as well as probable bronchitis. She had hypoxic respiratory failure and atrial fibrillation with a rapid ventricular response.. She received antibiotics, furosemide and steroids in the emergency room and was then admitted for further management. She was admitted to the intensive care unit because of the atrial fibrillation. Fortunately we were able to manage this using only oral diltiazem and her heart rate was in the normal range by the morning after admission. She responded well to the IV furosemide with improvement in her shortness of breath. During the day after admission she had additional doses of furosemide as well as antibiotic therapy with doxycycline. She had ongoing improvement in her respiratory status. On the morning of discharge she is now weaned off of her supplemental oxygen. Shortness of breath has improved significantly and her minimal lower extremity edema has now resolved. Pulmonary exam has improved dramatically with essential resolution of her crackles. She has been up and walking around. Her appetite has been excellent. She is interested in going home at this time. I did send her home with prescriptions for her heart failure meds as well as her atrial fibrillation medications. She will need antibiotics for a few more days. She will go back on her usual dose of Lasix. I suspect her exacerbation was the result of not taking her medications for some time. She is back on her warfarin again. I encouraged her to follow-up early in she will need a Coumadin clinic visit later this week. Also noted during the hospital stay was a completely suppressed TSH with a mildly elevated free T4. The patient is aware that she supposed to have a thyroidectomy but has not been following up. I encouraged her to follow-up with her primary care to complete a preop and consider thyroid surgery. - Patient Instructions Diet: Heart Healthy Diet Activity: As Tolerated Showering/Bathing: May Shower Notify Provider of: Fever, Increased Pain, Nausea and/or Vomiting Other/Special Instructions: 1. You were in the hospital for management of acute decompensated congestive heart failure secondary to medication noncompliance. I strongly recommend that you take your medications as prescribed including the warfarin, furosemide, diltiazem and carvedilol. Not being on these medications puts increased stress on your heart and can lead to serious health complications or even . 2. Also noted during the hospital stay was suspicion for bronchitis. I recommend 5 additional doses of antibiotic therapy with doxycycline. You should take this medication twice daily with food. Your next dose is due tonight. 3. Please follow-up with the Coumadin clinic at the end of the week to have your INR checked. 4. Please follow-up with Jodie Peña in 3-4 days. I would strongly encourage you to get set up for your thyroid surgery as soon as possible. 5. Please seek medical attention if you have a fever greater than 101, severe shortness of breath or chest pain. - Discharge Plan *PRESCRIPTION DRUG MONITORING PROGRAM REVIEWED*: No *COPY OF PRESCRIPTION DRUG MONITORING REPORT IN PATIENT KIRAN: No Prescriptions/Med Rec: Albuterol/Ipratropium [DuoNeb 3.0-0.5 MG/3 ML] 3 ml NEB BID #60 neb Carvedilol [Coreg] 12.5 mg PO BID #60 tablet Diltiazem HCl [Diltiazem 24Hr Cd] 240 mg PO DAILY #30 cap.er.24h Doxycycline [Vibramycin] 100 mg PO Q12H #5 cap Furosemide 80 mg PO DAILY #30 tablet Lisinopril/Hydrochlorothiazide [Lisinopril-Hctz 10-12.5 mg Tab] 10 - 12.5 mg PO DAILY #30 tablet oxyCODONE 5 mg PO Q4H PRN #15 tablet PRN Reason: Pain (Moderate 4-6) Venlafaxine HCl [Venlafaxine HCl ER] 300 mg PO DAILY #60 tab.er.24 Warfarin [Coumadin] 5 mg PO DAILY #30 tab Home Medications: Home Meds Aspirin [Low Dose Aspirin EC] 81 mg PO DAILY 09/24/13 [History] Gabapentin [Neurontin] 800 mg PO TID 03/25/15 [History] Acetaminophen 650 mg PO Q4H PRN #100 tablet 03/30/15 [Rx] Ergocalciferol (Vitamin D2) [Drisdol] 50,000 unit PO .QW 06/02/15 [History] Albuterol Sulfate [Proair Hfa] 1 - 2 puff INH Q4H PRN 12/17/15 [History] Albuterol/Ipratropium [Combivent Respimat] 20 - 100 mcg INH QID PRN 12/17/15 [ History] Triamcinolone Acetonide [Kenalog 0.1% Crm] 0.1 percent TOP BID 12/17/15 [History ] Fluticasone Propionate [Flonase] 2 spray TOP DAILY 08/26/18 [History] Loratadine [Claritin] 10 mg PO DAILY PRN 08/26/18 [History] Trolamine Salicylate/Aloe Vera [Aspercreme 10%] 1 inch TP ASDIRECTED PRN [History] Albuterol/Ipratropium [DuoNeb 3.0-0.5 MG/3 ML] 3 ml NEB BID #60 neb 08/28/18 [Rx ] Carvedilol [Coreg] 12.5 mg PO BID #60 tablet 08/28/18 [Rx] Diltiazem HCl [Diltiazem 24Hr Cd] 240 mg PO DAILY #30 cap.er.24h 08/28/18 [Rx] Doxycycline [Vibramycin] 100 mg PO Q12H #5 cap 08/28/18 [Rx] Furosemide 80 mg PO DAILY #30 tablet 08/28/18 [Rx] Lisinopril/Hydrochlorothiazide [Lisinopril-Hctz 10-12.5 mg Tab] 10 - 12.5 mg PO DAILY #30 tablet 08/28/18 [Rx] Venlafaxine HCl [Venlafaxine HCl ER] 300 mg PO DAILY #60 tab.er.24 08/28/18 [Rx] Warfarin [Coumadin] 5 mg PO DAILY #30 tab 08/28/18 [Rx] oxyCODONE 5 mg PO Q4H PRN #15 tablet 08/28/18 [Rx] Patient Handouts: Doxycycline tablets or capsules, Heart Failure, [id number] Referrals: Yani Peña PA-C [Ordering Only Provider] - 08/30/18 10:30 am (f/u in 3- 4 days - follow-up hospital stay for congestive heart failure and bronchitis) - Discharge Summary/Plan Comment DC Time >30 min.: Yes (40 - coordinating follow-up for heart failure and hyperthyroidism) - Patient Data Vitals - Most Recent: Last Vital Signs Temp 35.8 C 08/28/18 02:00 Pulse 83 08/28/18 10:02 Resp 16 08/28/18 09:53 BP 163/86 H 08/28/18 10:02 Pulse Ox 95 08/28/18 09:53 Weight - Most Recent: 113.2 kg I&O - Last 24 hours: Intake & Output 08/27/18 08/28/18 08/28/18 22:59 06:59 14:59 Intake Total 960 720 Balance 960 720 Lab Results - Last 24 hrs: Laboratory Results - last 24 hr 08/28/18 08/28/18 Range/Units 05:56 05:56 WBC 20.5 H (4.5-11.0) K/uL RBC 4.53 (3.30-5.50) M/uL Hgb 11.9 L (12.0-15.0) g/dL Hct 38.9 (36.0-48.0) % MCV 86 (80-98) fL MCH 26 L (27-31) pg MCHC 31 L (32-36) % Plt Count 355 (150-400) K/uL Sodium 140 (140-148) mmol/L Potassium 4.0 (3.6-5.2) mmol/L Chloride 105 (100-108) mmol/L Carbon Dioxide 29 (21-32) mmol/L Anion Gap 6.3 (5.0-14.0) mmol/L BUN 37 H (7-18) mg/dL Creatinine 1.4 H (0.6-1.0) mg/dL Est Cr Clr Drug Dosing 42.59 mL/min Estimated GFR (MDRD) 39 L (>60) Glucose 121 H (74-106) mg/dL Calcium 8.8 (8.5-10.1) mg/dL Med Orders - Current: Current Medications Acetaminophen (Tylenol) 650 mg PO Q4H PRN PRN Reason: Pain Albuterol (Proventil Neb Soln) 2.5 mg NEB Q4H PRN PRN Reason: Shortness Of Breath/wheezing Albuterol/Ipratropium (Duoneb 3.0-0.5 Mg/3 Ml) 3 ml NEB QIDRT [facility] Last Admin: 08/28/18 07:34 Dose: Not Given Aspirin (Halfprin) 81 mg PO DAILY [facility] Last Admin: 08/28/18 10:02 Dose: 81 mg Carvedilol (Coreg) 12.5 mg PO BID [facility] Last Admin: 08/28/18 10:02 Dose: 12.5 mg Diltiazem HCl (Cardizem Cd) 240 mg PO DAILY [facility] Last Admin: 08/28/18 10:00 Dose: 240 mg Doxycycline Hyclate (Vibramycin) 100 mg PO Q12H [facility] Last Admin: 08/28/18 09:57 Dose: 100 mg Enoxaparin Sodium (Lovenox) 40 mg SUBCUT DAILY [facility] Last Admin: 08/27/18 08:51 Dose: 40 mg Furosemide (Lasix) 40 mg IVPUSH DAILY [facility] Last Admin: 08/27/18 09:09 Dose: 40 mg Gabapentin (Neurontin) 800 mg PO TID [facility] Last Admin: 08/28/18 09:57 Dose: 800 mg Hydrochlorothiazide (Hydrochlorothiazide) 12.5 mg PO DAILY [facility] Last Admin: 08/28/18 09:58 Dose: 12.5 mg Lisinopril (Prinivil) 10 mg PO DAILY [facility] Last Admin: 08/28/18 09:59 Dose: 10 mg Ondansetron HCl (Zofran Odt) 4 mg PO Q6H PRN PRN Reason: Nausea able to take PO Oxycodone HCl (Oxycodone) 5 mg PO Q4H PRN PRN Reason: Pain (moderate 4-6) Last Admin: 08/28/18 02:33 Dose: 5 mg Venlafaxine HCl (Effexor Xr) 300 mg PO DAILY [facility] Last Admin: 08/28/18 09:57 Dose: 300 mg Discontinued Medications Albuterol/Ipratropium (Duoneb 3.0-0.5 Mg/3 Ml) 3 ml NEB ONETIME ONE Stop: 08/26/18 11:06 Last Admin: 08/26/18 11:12 Dose: 3 ml Diltiazem HCl (Diltiazem) 20 mg IVPUSH ONETIME ONE Stop: 08/26/18 11:12 Last Admin: 08/26/18 11:52 Dose: 20 mg Diltiazem HCl (Cardizem) 60 mg PO Q6H [facility] Last Admin: 08/27/18 02:04 Dose: 60 mg Furosemide (Lasix) 40 mg IVPUSH ONETIME ONE Stop: 08/26/18 11:06 Last Admin: 08/26/18 11:27 Dose: 40 mg Furosemide (Lasix) 40 mg IVPUSH ONETIME ONE Stop: 08/26/18 18:01 Last Admin: 08/26/18 17:24 Dose: 40 mg Furosemide (Lasix) 40 mg IVPUSH ONETIME ONE Stop: 08/27/18 15:01 Last Admin: 08/27/18 15:26 Dose: 40 mg Ceftriaxone Sodium 1 gm/ (Sodium Chloride) 50 mls @ 100 mls/hr IV ONETIME ONE Stop: 08/26/18 12:53 Last Admin: 08/26/18 13:00 Dose: 100 mls/hr Potassium Chloride (Klor-Con M20) 40 meq PO ONETIME ONE Stop: 08/27/18 08:31 Last Admin: 08/27/18 08:41 Dose: 40 meq Prednisone (Prednisone) 40 mg PO ONETIME ONE Stop: 08/26/18 11:35 Last Admin: 08/26/18 11:41 Dose: 40 mg Prednisone (Prednisone) 40 mg PO DAILY [facility] Stop: 08/28/18 09:01 Last Admin: 08/28/18 09:58 Dose: 40 mg - Exam Quality Assessment: Denies: Supplemental Oxygen General: Reports: Alert, Oriented, Cooperative, No Acute Distress Lungs: Reports: Clear to Auscultation, Normal Respiratory Effort, Decreased Breath Sounds (mild both lung bases) Cardiovascular: Reports: Regular Rate, Irregular Rhythm GI/Abdominal Exam: Soft, No Distention Extremities: No Pedal Edema Psy/Mental Status: Reports: Alert, Normal Affect
[2018-08-28] MEDS: Enoxaparin 40 MG/0.4 ML Syringe SUBCUT SCH (10:27)
[2018-08-28] MEDS: Furosemide 40 MG/4 ML VIAL IVPUSH SCH (10:27)
== END 2018-08-28 11:39 | disposition home or self-care (01) | DRG 291 ==
LOC: JP.ED 10:49 → JP.ICU 13:07 → JP.2SS 08-27 10:00
PROVIDERS: ADMIT Internal Medicine; ATTEND Internal Medicine
DX: I11.0 Hypertensive heart disease with heart failure (principal); J96.21 Acute and chronic respiratory failure with hypoxia; J44.1 Chronic obstructive pulmonary disease with (acute) exacerbation; I50.23 Acute on chronic systolic (congestive) heart failure; Z91.14 Patient's other noncompliance with medication regimen; I48.2 Chronic atrial fibrillation; G89.29 Other chronic pain; M54.9 Dorsalgia, unspecified; E03.9 Hypothyroidism, unspecified; F17.210 Nicotine dependence, cigarettes, uncomplicated; F43.10 Post-traumatic stress disorder, unspecified; I45.81 Long QT syndrome; Z79.899 Other long term (current) drug therapy; Z79.82 Long term (current) use of aspirin; Z79.01 Long term (current) use of anticoagulants; Z88.8 Allergy status to other drugs, medicaments and biological substances; Z87.440 Personal history of urinary (tract) infections; Z99.81 Dependence on supplemental oxygen
CPT/HCPCS: 36415; 71046; 71046-26; 80048; 80053; 83735; 83880; 84439; 84443; 85027; 85610; 87804; 87804-59; 93005; 93306; 94640; 96365; 96375; 99285-25; A9270-GY; J0696; J1650; J1940; J3490; J7050; J7620-GY

== ENCOUNTER 2019-09-27 07:34 | Inpatient (IN) | payer MEDICAID ==
--- NOTE | 2019-09-27 07:47 | EDM.PDOC ---
ED HPI GENERAL MEDICAL PROBLEM - General Chief Complaint: Cardiovascular Problem Stated Complaint: [facility] Time Seen by Provider: 09/27/19 07:35 Source of Information: Reports: Patient, EMS History Limitations: Reports: No Limitations - History of Present Illness INITIAL COMMENTS - FREE TEXT/NARRATIVE: 58-year-old female with a history of COPD and congestive heart failure, chronic atrial fibrillation who is supposed to be on Coumadin and COPD medications but she moved and apparently her medicines were placed in storage and she's been without them for a month. She continued to smoke up until 10 days ago. She's becoming more short of breath, for the last 5 days it's gotten much worse and she finally called the ambulance this morning when she couldn't breathe. They arrived she was dusky, O2 saturations in the low 70s and she was in respiratory failure. She denies any fever or cold symptoms. She has difficulty lying flat. She has no peripheral edema. No urinary symptoms. She does complain of some intermittent chest tightness or discomfort, none currently. Patient improved markedly during transport with a DuoNeb and nasal cannula oxygen. In the emergency room she was still dyspneic and has increased respiratory effort, O2 saturations are now in the mid 90s and she feels much better. Skin color is good. Onset: Gradual, Unknown/Unsure Duration: Week(s): (Especially worse the last 5 days) Worsens with: Reports: Other (Activity and lying down seems to be worse) Associated Symptoms: Reports: Chest Pain (Intermittent), Cough, Malaise, Shortness of Breath. Denies: Fever/Chills, Nausea/Vomiting - Related Data Allergies Allergy/AdvReac Type Severity Reaction Status Date / Time codeine Allergy Mild Hives Verified 09/27/19 08:30 Home Meds: Home Meds Aspirin [Low Dose Aspirin EC] 81 mg PO DAILY 09/24/13 [History] Gabapentin [Neurontin] 800 mg PO TID 03/25/15 [History] Acetaminophen 650 mg PO Q4H PRN #100 tablet 03/30/15 [Rx] Ergocalciferol (Vitamin D2) [Drisdol] 50,000 unit PO .QW 06/02/15 [History] Albuterol Sulfate [Proair Hfa] 1 - 2 puff INH Q4H PRN 01/20/16 [History] Albuterol/Ipratropium [Combivent Respimat] 20 - 100 mcg INH QID PRN 12/17/15 [ History] Triamcinolone Acetonide [Kenalog 0.1% Crm] 0.1 percent TOP BID 12/17/15 [History ] Fluticasone Propionate [Flonase] 2 spray TOP DAILY 08/26/18 [History] Loratadine [Claritin] 10 mg PO DAILY PRN 08/26/18 [History] Trolamine Salicylate/Aloe Vera [Aspercreme 10%] 1 inch TP ASDIRECTED PRN [History] Albuterol/Ipratropium [DuoNeb 3.0-0.5 MG/3 ML] 3 ml NEB BID #60 neb 08/28/18 [Rx ] Carvedilol [Coreg] 12.5 mg PO BID #60 tablet 08/28/18 [Rx] Diltiazem HCl [Diltiazem 24Hr Cd] 240 mg PO DAILY #30 cap.er.24h 08/28/18 [Rx] Furosemide 80 mg PO DAILY #30 tablet 08/28/18 [Rx] Lisinopril/Hydrochlorothiazide [Lisinopril-Hctz 10-12.5 mg Tab] 10 - 12.5 mg PO DAILY #30 tablet 08/28/18 [Rx] Venlafaxine HCl [Venlafaxine HCl ER] 300 mg PO DAILY #60 tab.er.24 08/28/18 [Rx] Nitroglycerin 0.4 mg SL ASDIRECTED PRN 09/27/19 [History] Warfarin [Coumadin] 5 mg PO DAILY 09/27/19 [History] Past Medical History Cardiovascular History: Reports: Afib, Heart Failure, Hypertension Respiratory History: Reports: COPD Genitourinary History: Reports: UTI, Recurrent SOLUTION SPEC History: Reports: Musculoskeletal History: Reports: Back Pain, Chronic Psychiatric History: Reports: PTSD Endocrine/Metabolic History: Reports: Hypothyroidism - Infectious Disease History Infectious Disease History: Reports: Chicken Pox - Past Surgical History GI Surgical History: Reports: Appendectomy, Cholecystectomy Female Surgical History: Reports: Tubal Ligation Endocrine Surgical History: Reports: Thyroidectomy Social & Family History - Tobacco Use Smoking Status *Q: Former Smoker Used Tobacco, but Quit: Yes Month/Year Tobacco Last Used: 08/2019 - Caffeine Use Caffeine Use: Reports: Coffee, Energy Drinks, Soda - Recreational Drug Use Recreational Drug Use: No ED ROS GENERAL - Review of Systems Review Of Systems: See Below Constitutional: Reports: Malaise, Weakness. Denies: Fever, Chills Respiratory: Reports: Shortness of Breath, Cough. Denies: Sputum Cardiovascular: Reports: Chest Pain, Dyspnea on Exertion, Lightheadedness Endocrine: Reports: Fatigue GI/Abdominal: Denies: Abdominal Pain, Nausea, Vomiting Musculoskeletal: Reports: No Symptoms Skin: Reports: Other (Patient has a chronic generalized itchy rash, several excoriations are present on the lower extremities) Neurological: Reports: Dizziness. Denies: Headache ED EXAM, GENERAL - Physical Exam Exam: See Below Exam Limited By: No Limitations General Appearance: Alert, Mild Distress (Moderate dyspnea with increased respiratory effort) Eye Exam: Bilateral Eye: EOMI Throat/Mouth: Other (Advanced dental decay is present) Head: Atraumatic Respiratory/Chest: Respiratory Distress (Mild respiratory distress with increased respiratory effort. She has decreased breath sounds in the bases but no rales or rhonchi, very little wheezing) Cardiovascular: Tachycardia, Irregularly Irregular GI/Abdominal: Non-Tender Extremities: No: Pedal Edema Neurological: Alert, Oriented Psychiatric: Anxious Skin Exam: Warm, Dry, Other (Patient has a widespread asymmetrical rash consisting of small dry papular lesions especially on the lower extremities and shoulders, several appear to be excoriated) EKG INTERPRETATION Rhythm: A-Fib Rate (Beats/Min): 134 QRS: Normal Course - Vital Signs Last Recorded V/S: Last Vital Signs Temp 97.8 F 09/27/19 07:37 Pulse 138 H 09/27/19 11:08 Resp 29 H 09/27/19 09:44 BP 126/102 H 09/27/19 11:08 Pulse Ox 97 09/27/19 10:38 - Orders/Labs/Meds Orders: Active Orders 24 hr Category Date Time Status EKG 12 Lead [EK] Routine Ther 09/27/19 07:37 Stop Req Medication Orders Acetaminophen (Tylenol) 650 mg PO Q4H PRN PRN Reason: Pain (Mild 1-3)/fever Albuterol (Proventil Neb Soln) 2.5 mg NEB Q4H PRN PRN Reason: Shortness Of Breath/wheezing Albuterol/Ipratropium (Duoneb 3.0-0.5 Mg/3 Ml) 3 ml NEB QIDRT [facility] Last Admin: 09/27/19 10:37 Dose: 3 ml Aspirin (Halfprin) 81 mg PO DAILY [facility] Last Admin: 09/27/19 11:06 Dose: 81 mg Carvedilol (Coreg) 12.5 mg PO BID [facility] Last Admin: 09/27/19 11:08 Dose: 12.5 mg Diltiazem HCl (Cardizem Cd) 240 mg PO DAILY [facility] Last Admin: 09/27/19 11:08 Dose: 240 mg Enoxaparin Sodium (Lovenox) 40 mg SUBCUT DAILY [facility] Last Admin: 09/27/19 11:05 Dose: 40 mg Fluticasone Propionate (Flonase) 0 gm NASBOTH DAILY [facility] Last Admin: 09/27/19 11:05 Dose: 2 spray Furosemide (Lasix) 80 mg PO DAILY [facility] Last Admin: 09/27/19 11:09 Dose: 80 mg Gabapentin (Neurontin) 800 mg PO TID [facility] Last Admin: 09/27/19 11:07 Dose: 800 mg Hydrochlorothiazide (Hydrochlorothiazide) 12.5 mg PO DAILY [facility] Last Admin: 09/27/19 11:07 Dose: 12.5 mg Diltiazem HCl 125 mg/ Sodium (Chloride) 125 mls @ 5 mls/hr IV TITRATE [facility]; Protocol Last Admin: 09/27/19 09:47 Dose: 5 mg/hr, 5 mls/hr Lisinopril (Prinivil) 10 mg PO DAILY [facility] Last Admin: 09/27/19 11:06 Dose: 10 mg Methylprednisolone Sodium Succinate (Solu-Medrol) 40 mg IVPUSH Q8H [facility] Ondansetron HCl (Zofran) 4 mg IV Q4H PRN PRN Reason: Nausea/Vomiting Polyethylene Glycol (Miralax) 17 gm PO DAILY PRN PRN Reason: Constipation Sodium Chloride (Saline Flush) 10 ml FLUSH ASDIRECTED PRN PRN Reason: Keep Vein Open Venlafaxine HCl (Effexor Xr) 300 mg PO DAILY [facility] Last Admin: 09/27/19 11:09 Dose: 300 mg Warfarin Sodium (Coumadin) 5 mg PO DAILY@1300 [facility] Labs: Laboratory Tests 09/27/19 09/27/19 09/27/19 Range/Units 07:55 07:55 08:21 WBC 12.9 H (4.5-11.0) K/uL RBC 4.57 (3.30-5.50) M/uL Hgb 11.9 L (12.0-15.0) g/dL Hct 38.4 (36.0-48.0) % MCV 84 (80-98) fL MCH 26 L (27-31) pg MCHC 31 L (32-36) % Plt Count 307 (150-400) K/uL Neut % (Auto) 77 H (36-66) % Lymph % (Auto) 13 L (24-44) % [place] % (Auto) 8 H (2-6) % Eos % (Auto) 1 L (2-4) % Baso % (Auto) 0 (0-1) % Sodium 142 (140-148) mmol/L Potassium 4.3 (3.6-5.2) mmol/L Chloride 107 (100-108) mmol/L Carbon Dioxide 27 (21-32) mmol/L Anion Gap 8.0 (5.0-14.0) mmol/L BUN 16 (7-18) mg/dL Creatinine 1.0 (0.6-1.0) mg/dL Est Cr Clr Drug Dosing 61.10 mL/min Estimated GFR (MDRD) 57 L (>60) Glucose 167 H (74-106) mg/dL Calcium 8.8 (8.5-10.1) mg/dL Total Bilirubin 0.6 (0.2-1.0) mg/dL AST 24 (15-37) U/L ALT 25 (12-78) U/L Alkaline Phosphatase 126 H (46-116) U/L Troponin I < 0.017 (0.000-0.056) ng/mL Total Protein 6.7 (6.4-8.2) g/dL Albumin 2.5 L (3.4-5.0) g/dL Globulin 4.2 H (2.3-3.5) g/dL Albumin/Globulin Ratio 0.6 L (1.2-2.2) Urine Color Yellow (YELLOW) Urine Appearance Slightly cloudy A (CLEAR) Urine pH 6.0 (5.0-8.0) Ur Specific [place] 1.020 (1.008-1.030) Urine Protein 30 H (NEGATIVE) mg/dL Urine Glucose (UA) Negative (NEGATIVE) mg/dL Urine Ketones Negative (NEGATIVE) mg/dL Urine Occult Blood Trace-intact H (NEGATIVE) Urine Nitrite Negative (NEGATIVE) Urine Bilirubin Small H (NEGATIVE) Urine Urobilinogen >=8.0 H (0.2-1.0) EU/dL Ur Leukocyte Esterase Negative (NEGATIVE) Urine RBC 0-5 (0-5) Urine WBC 0-5 (0-5) Ur Epithelial Cells Many Amorphous Sediment Few Urine Bacteria Many Urine Mucus Not seen Urine Opiates Screen (NEGATIVE) Ur Oxycodone Screen (NEGATIVE) Urine Methadone Screen (NEGATIVE) Ur Propoxyphene Screen (NEGATIVE) Ur Barbiturates Screen (NEGATIVE) Ur Tricyclics Screen (NEGATIVE) Ur Phencyclidine Scrn (NEGATIVE) Ur Amphetamine Screen (NEGATIVE) U Methamphetamines Scrn (NEGATIVE) Urine MDMA Screen (NEGATIVE) U Benzodiazepines Scrn (NEGATIVE) U Cocaine Metab Screen (NEGATIVE) U Marijuana (THC) Screen (NEGATIVE) 09/27/19 Range/Units 08:21 WBC (4.5-11.0) K/uL RBC (3.30-5.50) M/uL Hgb (12.0-15.0) g/dL Hct (36.0-48.0) % MCV (80-98) fL MCH (27-31) pg MCHC (32-36) % Plt Count (150-400) K/uL Neut % (Auto) (36-66) % Lymph % (Auto) (24-44) % [place] % (Auto) (2-6) % Eos % (Auto) (2-4) % Baso % (Auto) (0-1) % Sodium (140-148) mmol/L Potassium (3.6-5.2) mmol/L Chloride (100-108) mmol/L Carbon Dioxide (21-32) mmol/L Anion Gap (5.0-14.0) mmol/L BUN (7-18) mg/dL Creatinine (0.6-1.0) mg/dL Est Cr Clr Drug Dosing mL/min Estimated GFR (MDRD) (>60) Glucose (74-106) mg/dL Calcium (8.5-10.1) mg/dL Total Bilirubin (0.2-1.0) mg/dL AST (15-37) U/L ALT (12-78) U/L Alkaline Phosphatase (46-116) U/L Troponin I (0.000-0.056) ng/mL Total Protein (6.4-8.2) g/dL Albumin (3.4-5.0) g/dL Globulin (2.3-3.5) g/dL Albumin/Globulin Ratio (1.2-2.2) Urine Color (YELLOW) Urine Appearance (CLEAR) Urine pH (5.0-8.0) Ur Specific [place] (1.008-1.030) Urine Protein (NEGATIVE) mg/dL Urine Glucose (UA) (NEGATIVE) mg/dL Urine Ketones (NEGATIVE) mg/dL Urine Occult Blood (NEGATIVE) Urine Nitrite (NEGATIVE) Urine Bilirubin (NEGATIVE) Urine Urobilinogen (0.2-1.0) EU/dL Ur Leukocyte Esterase (NEGATIVE) Urine RBC (0-5) Urine WBC (0-5) Ur Epithelial Cells Amorphous Sediment Urine Bacteria Urine Mucus Urine Opiates Screen Negative (NEGATIVE) Ur Oxycodone Screen Negative (NEGATIVE) Urine Methadone Screen Negative (NEGATIVE) Ur Propoxyphene Screen Negative (NEGATIVE) Ur Barbiturates Screen Negative (NEGATIVE) Ur Tricyclics Screen Negative (NEGATIVE) Ur Phencyclidine Scrn Negative (NEGATIVE) Ur Amphetamine Screen Presumptive positive H (NEGATIVE) U Methamphetamines Scrn Presumptive positive H (NEGATIVE) Urine MDMA Screen Negative (NEGATIVE) U Benzodiazepines Scrn Negative (NEGATIVE) U Cocaine Metab Screen Negative (NEGATIVE) U Marijuana (THC) Screen Negative (NEGATIVE) Meds: Medications Generic Name Dose Route Start Last Admin Trade Name Freq PRN Reason Stop Dose Admin Acetaminophen 650 mg 09/27/19 09:44 Tylenol PO Q4H PRN Pain (Mild 1-3)/fever Albuterol 2.5 mg 09/27/19 09:44 Proventil Neb Soln NEB Q4H PRN Shortness Of Breath/wheezing Albuterol/Ipratropium 3 ml 09/27/19 11:00 09/27/19 10:37 Duoneb 3.0-0.5 Mg/3 Ml NEB 3 ml QIDRT [facility] Administration Aspirin 81 mg 09/27/19 09:44 09/27/19 11:06 Halfprin PO 81 mg DAILY [facility] Administration Carvedilol 12.5 mg 09/27/19 09:44 09/27/19 11:08 Coreg PO 12.5 mg BID [facility] Administration Diltiazem HCl 240 mg 09/27/19 09:44 09/27/19 11:08 Cardizem Cd PO 240 mg DAILY [facility] Administration Enoxaparin Sodium 40 mg 09/27/19 09:44 09/27/19 11:05 Lovenox SUBCUT 40 mg DAILY [facility] Administration Fluticasone Propionate 0 gm 09/27/19 09:44 09/27/19 11:05 Flonase NASBOTH 2 spray DAILY [facility] Administration Furosemide 80 mg 09/27/19 09:44 09/27/19 11:09 Lasix PO 80 mg DAILY [facility] Administration Gabapentin 800 mg 09/27/19 09:44 09/27/19 11:07 Neurontin PO 800 mg TID [facility] Administration Hydrochlorothiazide 12.5 mg 09/27/19 10:00 09/27/19 11:07 Hydrochlorothiazide PO 12.5 mg DAILY [facility] Administration Diltiazem HCl 125 mg/ Sodium 125 mls @ 5 mls/hr 09/27/19 09:45 09/27/19 09:47 Chloride IV 5 mg/hr TITRATE [facility] 5 mls/hr Administration Protocol 5 MG/HR Lisinopril 10 mg 09/27/19 10:00 09/27/19 11:06 Prinivil PO 10 mg DAILY [facility] Administration Methylprednisolone Sodium Succinate 40 mg 09/27/19 16:00 Solu-Medrol IVPUSH Q8H [facility] Ondansetron HCl 4 mg 09/27/19 09:44 Zofran IV Q4H PRN Nausea/Vomiting Polyethylene Glycol 17 gm 09/27/19 09:44 Miralax PO DAILY PRN Constipation Sodium Chloride 10 ml 09/27/19 09:44 Saline Flush FLUSH ASDIRECTED PRN Keep Vein Open Venlafaxine HCl 300 mg 09/27/19 10:00 09/27/19 11:09 Effexor Xr PO 300 mg DAILY [facility] Administration Warfarin Sodium 5 mg 09/27/19 13:00 Coumadin PO DAILY@1300 [facility] Discontinued Medications Generic Name Dose Route Start Last Admin Trade Name Freq PRN Reason Stop Dose Admin Diltiazem HCl 20 mg 09/27/19 07:49 09/27/19 07:56 Diltiazem IVPUSH 09/27/19 07:50 20 mg ONETIME ONE Administration Diltiazem HCl 20 mg 09/27/19 09:34 09/27/19 09:47 Diltiazem IVPUSH 09/27/19 09:35 20 mg ONETIME ONE Administration Furosemide 40 mg 09/27/19 07:49 09/27/19 08:20 Lasix IVPUSH 09/27/19 07:50 40 mg ONETIME ONE Administration Methylprednisolone Sodium Succinate 125 mg 09/27/19 07:49 09/27/19 07:59 Solu-Medrol IVPUSH 09/27/19 07:50 125 mg ONETIME ONE Administration - Re-Assessments/Exams Free Text/Narrative Re-Assessment/Exam: 09/27/19 07:46 IV was started, EKG confirmed atrial fibrillation with rapid ventricular response. CBC, CMP, troponin and 1 view chest x-ray obtained along with a urine for UA and urine drug screen. This patient has been positive for methamphetamine in the past. 09/27/19 07:52 Patient's previous medication list was reviewed and there is some very significant medication she's been missing. She supposed to take 80 mg of Lasix daily but she's been cutting them in half and taking 40, however she has not had it for a month. She is also supposed to be in Cardizem, lisinopril / hydrochlorothiazide, warfarin, and aspirin. Also several pulmonary medications. After the IV was started, she was given 40 mg of IV Lasix, a Millan was placed for accurate I&O, and she was given 125 mg of Solu-Medrol and 20 mg of IV Cardizem. 09/27/19 08:11 Patient's rate control responded well to Cardizem. Chest x-ray showed some mild congestive heart failure but no significant pleural effusions or failure who explaining the seriousness of her symptoms, COPD exacerbation component is obviously involved. White count was 12,900, hemoglobin 11.9. 09/27/19 08:29 Troponin is 0, electrolytes are reassuring. Patient slowly improved. I discussed her condition with Dr. Raul Sargent, he agreed to see her to consider admission for COPD exacerbation, congestive heart failure, and uncontrolled chronic atrial fibrillation along with significant medical noncompliance. Departure - Departure Time of Disposition: 10:20 Disposition: Admitted As Inpatient 65 Clinical Impression: Methamphetamine use, Acute exacerbation of chronic obstructive pulmonary disease (COPD) CHF (congestive heart failure) Qualifiers: Heart failure chronicity: acute on chronic - My Orders Last 24 Hours: My Active Orders 09/27/19 07:37 EKG 12 Lead [EK] Routine - Assessment/Plan Last 24 Hours: My Active Orders 09/27/19 07:37 EKG 12 Lead [EK] Routine
[2019-09-27] MEDS ORDERED: Furosemide 40 MG/4 ML VIAL IVPUSH ONE (07:49)
[2019-09-27] MEDS ORDERED: Diltiazem 25 MG/5 ML SDV IVPUSH ONE ×2 (07:49→09:34)
[2019-09-27] MEDS ORDERED: methylPREDNISolone Sodium Succinate 125 MG/2 ML SDV IVPUSH ONE (07:49)
--- NOTE | 2019-09-27 08:15 | CRLCR ---
INDICATION: Shortness of breath. COMPARISON: Portable chest dated 10/07/2018 TECHNIQUE: Portable AP erect chest performed at 7:55 a.m. FINDINGS: There is stable chronic pleural scarring within the left lung base. The heart remains mildly enlarged but there is no evidence of CHF. No new pulmonary infiltrates are identified. There is no evidence of pneumothorax. IMPRESSION: Stable chest. No acute cardiopulmonary disease process identified. Dictated by Nicholas Joe MD @ 09/27/2019 8:12:38 AM Dictated by: Nicholas Joe MD @ 09/27/2019 08:12:45 (Electronically Signed)
--- NOTE | 2019-09-27 08:50 | PCM.HP.2 ---
H&P History of Present Illness - General Date of Service: 09/27/19 Admit Problem/Dx: Admission Diagnosis/Problem Admission Diagnosis/Problem Atrial fibrillation with rapid ventricular response Source of Information: Patient, Old Records, Provider History Limitations: Reports: No Limitations - History of Present Illness Initial Comments - Free Text/Narative: Ms. Salinas is a 58-year-old woman who was admitted through the emergency department with weakness and shortness of breath secondary to COPD exacerbation and atrial fibrillation with rapid ventricular response. She has a known history of oxygen dependent COPD, but has been unable to use her oxygen over the past month. In addition she has a known history of long-standing atrial fibrillation as well as congestive heart failure and has been off of all her medications over the past month. This morning was severely short of breath, when EMS arrived at her home oxygen saturations were in the low 70s and she was noted to be dusky in appearance. She was brought to the emergency department for further evaluation was noted to be in atrial fibrillation with rapid ventricular response, heart rates in the 130 to 140 range. She was placed on supplemental oxygen and has received nebulizer therapy in addition to Solu- Medrol. White blood cell count is modestly elevated but she denies recent fever or cough productive of colored sputum. Heart rate transiently came under better control after she was given 20 mg of IV diltiazem. Saturations have improved with supplemental oxygen and nebulizer therapy. - Related Data Allergies/Adverse Reactions: Allergies Allergy/AdvReac Type Severity Reaction Status Date / Time codeine Allergy Mild Hives Verified 09/27/19 08:30 Home Medications: Home Meds Aspirin [Low Dose Aspirin EC] 81 mg PO DAILY 09/24/13 [History] Gabapentin [Neurontin] 800 mg PO TID 03/25/15 [History] Acetaminophen 650 mg PO Q4H PRN #100 tablet 03/30/15 [Rx] Ergocalciferol (Vitamin D2) [Drisdol] 50,000 unit PO .QW 06/02/15 [History] Albuterol Sulfate [Proair Hfa] 1 - 2 puff INH Q4H PRN 12/17/15 [History] Albuterol/Ipratropium [Combivent Respimat] 20 - 100 mcg INH QID PRN 12/17/15 [ History] Triamcinolone Acetonide [Kenalog 0.1% Crm] 0.1 percent TOP BID 12/17/15 [History ] Fluticasone Propionate [Flonase] 2 spray TOP DAILY 08/26/18 [History] Loratadine [Claritin] 10 mg PO DAILY PRN 08/26/18 [History] Trolamine Salicylate/Aloe Vera [Aspercreme 10%] 1 inch TP ASDIRECTED PRN [History] Albuterol/Ipratropium [DuoNeb 3.0-0.5 MG/3 ML] 3 ml NEB BID #60 neb 08/28/18 [Rx ] Carvedilol [Coreg] 12.5 mg PO BID #60 tablet 08/28/18 [Rx] Diltiazem HCl [Diltiazem 24Hr Cd] 240 mg PO DAILY #30 cap.er.24h 08/28/18 [Rx] Furosemide 80 mg PO DAILY #30 tablet 08/28/18 [Rx] Lisinopril/Hydrochlorothiazide [Lisinopril-Hctz 10-12.5 mg Tab] 10 - 12.5 mg PO DAILY #30 tablet 08/28/18 [Rx] Venlafaxine HCl [Venlafaxine HCl ER] 300 mg PO DAILY #60 tab.er.24 08/28/18 [Rx] Nitroglycerin 0.4 mg SL ASDIRECTED PRN 09/27/19 [History] Warfarin [Coumadin] 5 mg PO DAILY 09/27/19 [History] Past Medical History Cardiovascular History: Reports: Afib, Heart Failure, Hypertension Respiratory History: Reports: COPD Genitourinary History: Reports: UTI, Recurrent 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: Musculoskeletal History: Reports: Back Pain, Chronic Psychiatric History: Reports: PTSD Endocrine/Metabolic History: Reports: Hypothyroidism - Infectious Disease History Infectious Disease History: Reports: Chicken Pox - Past Surgical History GI Surgical History: Reports: Appendectomy, Cholecystectomy Female Surgical History: Reports: Tubal Ligation Endocrine Surgical History: Reports: Thyroidectomy Social & Family History - Tobacco Use Smoking Status *Q: Former Smoker Used Tobacco, but Quit: Yes Month/Year Tobacco Last Used: 08/2019 - Caffeine Use Caffeine Use: Reports: Coffee, Energy Drinks, Soda - Recreational Drug Use Recreational Drug Use: No H&P Review of Systems - Review of Systems: Review Of Systems: See Below General: Reports: Fever, Malaise, Weakness. Denies: Chills HEENT: Reports: No Symptoms Pulmonary: Reports: Shortness of Breath, Cough. Denies: Wheezing, Pleuritic Chest Pain, Sputum, Hemoptysis Cardiovascular: Reports: Dyspnea on Exertion. Denies: Chest Pain, Palpitations , Orthopnea, PND, Edema, Lightheadedness Gastrointestinal: Reports: No Symptoms Genitourinary: Reports: No Symptoms Musculoskeletal: Reports: No Symptoms Skin: Reports: No Symptoms Psychiatric: Reports: No Symptoms Neurological: Reports: No Symptoms Hematologic/Lymphatic: Reports: No Symptoms Immunologic: Reports: No Symptoms Exam - Exam Exam: See Below - Vital Signs Vital Signs: Last Vital Signs Temp 97.8 F 09/27/19 07:37 Pulse 111 H 09/27/19 08:22 Resp 28 H 09/27/19 08:22 BP 170/84 H 09/27/19 08:22 Pulse Ox 98 09/27/19 08:22 Weight: 225 lb - Exam Quality Assessment: Supplemental Oxygen, Urinary Catheter, DVT Prophylaxis General: Alert, Oriented, Cooperative, Moderate Distress HEENT: PERRLA, Hearing Intact, Mucosa Moist & [place], Normal Nasal Septum, Posterior Pharynx Clear, Pupils Equal Neck: Supple, Trachea Midline, +2 Carotid Pulse wo Bruit Lungs: Decreased Breath Sounds. No: Rales, Rhonchi, Wheezing Cardiovascular: Normal S1, Normal S2, Irregular Rhythm, Tachycardia. No: Systolic Murmur, Diastolic Murmur GI/Abdominal Exam: Soft, Non-Tender, No Organomegaly, No Distention Back Exam: Normal Inspection, Full Range of Motion Extremities: Non-Tender, No Pedal Edema Skin: Warm, Dry Neurological: Cranial Nerves Intact, Strength Equal Bilateral, Normal Speech, Normal Tone, Sensation Intact. No: Focal Deficit Neuro Extensive - Mental Status: Alert, Oriented x3, Normal Mood/Affect, Normal Cognition, Memory Intact - Patient Data Lab Results Last 24 hrs: Laboratory Results - last 24 hr 09/27/19 09/27/19 09/27/19 Range/Units 07:55 07:55 08:21 WBC 12.9 H (4.5-11.0) K/uL RBC 4.57 (3.30-5.50) M/uL Hgb 11.9 L (12.0-15.0) g/dL Hct 38.4 (36.0-48.0) % MCV 84 (80-98) fL MCH 26 L (27-31) pg MCHC 31 L (32-36) % Plt Count 307 (150-400) K/uL Neut % (Auto) 77 H (36-66) % Lymph % (Auto) 13 L (24-44) % [place] % (Auto) 8 H (2-6) % Eos % (Auto) 1 L (2-4) % Baso % (Auto) 0 (0-1) % Sodium 142 (140-148) mmol/L Potassium 4.3 (3.6-5.2) mmol/L Chloride 107 (100-108) mmol/L Carbon Dioxide 27 (21-32) mmol/L Anion Gap 8.0 (5.0-14.0) mmol/L BUN 16 (7-18) mg/dL Creatinine 1.0 (0.6-1.0) mg/dL Est Cr Clr Drug Dosing 61.10 mL/min Estimated GFR (MDRD) 57 L (>60) Glucose 167 H (74-106) mg/dL Calcium 8.8 (8.5-10.1) mg/dL Total Bilirubin 0.6 (0.2-1.0) mg/dL AST 24 (15-37) U/L ALT 25 (12-78) U/L Alkaline Phosphatase 126 H (46-116) U/L Troponin I < 0.017 (0.000-0.056) ng/mL Total Protein 6.7 (6.4-8.2) g/dL Albumin 2.5 L (3.4-5.0) g/dL Globulin 4.2 H (2.3-3.5) g/dL Albumin/Globulin Ratio 0.6 L (1.2-2.2) Urine Color Yellow (YELLOW) Urine Appearance Slightly cloudy A (CLEAR) Urine pH 6.0 (5.0-8.0) Ur Specific [place] 1.020 (1.008-1.030) Urine Protein 30 H (NEGATIVE) mg/dL Urine Glucose (UA) Negative (NEGATIVE) mg/dL Urine Ketones Negative (NEGATIVE) mg/dL Urine Occult Blood Trace-intact H (NEGATIVE) Urine Nitrite Negative (NEGATIVE) Urine Bilirubin Small H (NEGATIVE) Urine Urobilinogen >=8.0 H (0.2-1.0) EU/dL Ur Leukocyte Esterase Negative (NEGATIVE) Urine RBC 0-5 (0-5) Urine WBC 0-5 (0-5) Ur Epithelial Cells Many Amorphous Sediment Few Urine Bacteria Many Urine Mucus Not seen Urine Opiates Screen (NEGATIVE) Ur Oxycodone Screen (NEGATIVE) Urine Methadone Screen (NEGATIVE) Ur Propoxyphene Screen (NEGATIVE) Ur Barbiturates Screen (NEGATIVE) Ur Tricyclics Screen (NEGATIVE) Ur Phencyclidine Scrn (NEGATIVE) Ur Amphetamine Screen (NEGATIVE) U Methamphetamines Scrn (NEGATIVE) Urine MDMA Screen (NEGATIVE) U Benzodiazepines Scrn (NEGATIVE) U Cocaine Metab Screen (NEGATIVE) U Marijuana (THC) Screen (NEGATIVE) 09/27/19 Range/Units 08:21 WBC (4.5-11.0) K/uL RBC (3.30-5.50) M/uL Hgb (12.0-15.0) g/dL Hct (36.0-48.0) % MCV (80-98) fL MCH (27-31) pg MCHC (32-36) % Plt Count (150-400) K/uL Neut % (Auto) (36-66) % Lymph % (Auto) (24-44) % [place] % (Auto) (2-6) % Eos % (Auto) (2-4) % Baso % (Auto) (0-1) % Sodium (140-148) mmol/L Potassium (3.6-5.2) mmol/L Chloride (100-108) mmol/L Carbon Dioxide (21-32) mmol/L Anion Gap (5.0-14.0) mmol/L BUN (7-18) mg/dL Creatinine (0.6-1.0) mg/dL Est Cr Clr Drug Dosing mL/min Estimated GFR (MDRD) (>60) Glucose (74-106) mg/dL Calcium (8.5-10.1) mg/dL Total Bilirubin (0.2-1.0) mg/dL AST (15-37) U/L ALT (12-78) U/L Alkaline Phosphatase (46-116) U/L Troponin I (0.000-0.056) ng/mL Total Protein (6.4-8.2) g/dL Albumin (3.4-5.0) g/dL Globulin (2.3-3.5) g/dL Albumin/Globulin Ratio (1.2-2.2) Urine Color (YELLOW) Urine Appearance (CLEAR) Urine pH (5.0-8.0) Ur Specific [place] (1.008-1.030) Urine Protein (NEGATIVE) mg/dL Urine Glucose (UA) (NEGATIVE) mg/dL Urine Ketones (NEGATIVE) mg/dL Urine Occult Blood (NEGATIVE) Urine Nitrite (NEGATIVE) Urine Bilirubin (NEGATIVE) Urine Urobilinogen (0.2-1.0) EU/dL Ur Leukocyte Esterase (NEGATIVE) Urine RBC (0-5) Urine WBC (0-5) Ur Epithelial Cells Amorphous Sediment Urine Bacteria Urine Mucus Urine Opiates Screen Negative (NEGATIVE) Ur Oxycodone Screen Negative (NEGATIVE) Urine Methadone Screen Negative (NEGATIVE) Ur Propoxyphene Screen Negative (NEGATIVE) Ur Barbiturates Screen Negative (NEGATIVE) Ur Tricyclics Screen Negative (NEGATIVE) Ur Phencyclidine Scrn Negative (NEGATIVE) Ur Amphetamine Screen Presumptive positive H (NEGATIVE) U Methamphetamines Scrn Presumptive positive H (NEGATIVE) Urine MDMA Screen Negative (NEGATIVE) U Benzodiazepines Scrn Negative (NEGATIVE) U Cocaine Metab Screen Negative (NEGATIVE) U Marijuana (THC) Screen Negative (NEGATIVE) Result Diagrams: 09/27/19 07:55 09/27/19 07:55 *Q Meaningful Use (ADM) - VTE Risk Assess *Q Each Risk Factor Represents 1 Point: Age 41 - 59 years, Obesity ( BMI > 25 kg/m2 ), Congestive heart failure (CHF), Abnormal Pulmonary Function (COPD) Total Score 1 Point Risk Factors: 4 Each Risk Factor Represents 2 Points: None Total Score 2 Point Risk Factors: 0 Each Risk Factor Represents 3 Points: None Total Score 3 Point Risk Factors: 0 Each Risk Factor Represents 5 Points: None Total Score 5 Point Risk Factors: 0 Venous Thromboembolism Risk Factor Score *Q: 4 Problem List Initiated/Reviewed/Updated: Yes Orders Last 24hrs: Active Orders 24 hr Category Date Time Status Patient Status Manage Transfer [TRANSFER] Routine ADT 09/27/19 08:39 Ordered EKG Documentation Completion [RC] ASDIRECTED Care 09/27/19 07:37 Active Insert Millan Catheter [Insert Urinary Catheter] [OM.PC] Care 09/27/19 08:00 Ordered Q24H Urinary Catheter Assessment [RC] ASDIRECTED Care 09/27/19 07:49 Active Resuscitation Status Routine Resus Stat 09/27/19 08:45 Ordered EKG 12 Lead [EK] Routine Ther 09/27/19 07:37 Ordered Assessment/Plan Comment:: ASSESSMENT AND PLAN COPD EXACERBATION-likely cause of her significant hypoxia on initial assessment , she is been without her medications and supplemental oxygen over the past month. At this time there is no evidence of underlying pulmonary infection. We have attempted to obtain arterial blood gases but were only able to get the VBGs , refuses further attempts for arterial blood gases. -Supplemental oxygen -Nebulizer therapy with albuterol and duo nebs -Solu-Medrol 40 mg IV every 8 hours ATRIAL FIBRILLATION WITH RAPID VENTRICULAR [id number] history she is been off of rate controlling medications and anticoagulation over the past month. -Repeat diltiazem bolus 20 mg IV -Continuous diltiazem infusion per protocol -Resume oral Coreg and diltiazem -INR now and in a.m. -Resume warfarin 5 mg by mouth daily URINE POSITIVE FOR METHAMPHETAMINE -Monitor closely for withdrawal CONGESTIVE HEART FAILURE-evaluation seems to be well compensated -Resume usual outpatient medications MAINTENANCE ISSUES -DVT prophylaxis; Lovenox 40 mg subcutaneous daily, until INR is therapeutic -GI prophylaxis; not indicated -Millan catheter; placed in the emergency department, will be removed on admission -Nutrition; 2 g sodium diet -Nicotine dependence; not required CODE STATUS-FULL CODE ADMISSION STATUS-patient will be admitted to inpatient status, expect at least a 2 night hospital stay for evaluation and management of problems as outlined above. At the time of this admission I do not reasonably expected evaluation and management of this problem will require more than a 96 hour hospital stay. DISPOSITION-anticipate discharge to home after the hospital stay. PRIMARY CARE PROVIDER- - Mortality Measure Prognosis:: Good
[2019-09-27] MEDS ORDERED: Ondansetron 4 MG/2 ML SDV IV PRN (09:44)
[2019-09-27] MEDS ORDERED: Albuterol 0.083% 2.5 MG/3 ML Neb Soln NEB PRN (09:44)
[2019-09-27] MEDS ORDERED: Acetaminophen 325 MG Tab PO PRN (09:44)
[2019-09-27] MEDS ORDERED: Sodium Chloride 0.9% 10 ML Syringe FLUSH PRN (09:44)
[2019-09-27] MEDS ORDERED: Polyethylene Glycol 3350 Powder 17 GM Packet PO PRN (09:44)
[2019-09-27] MEDS ORDERED: Diltiazem 125 MG in Sodium Chloride 0.9% 100 ML IV SCH (09:45)
[2019-09-27] MEDS: Albuterol/Ipratropium 3.0-0.5 MG/3 ML Neb Soln NEB SCH ×3 (10:37→21:06)
[2019-09-27] MEDS: Fluticasone Propionate Nasal Spray 16 GM Bottle NASBOTH SCH (11:05)
[2019-09-27] MEDS: Enoxaparin 40 MG/0.4 ML Syringe SUBCUT SCH (11:05)
[2019-09-27] MEDS: Lisinopril 10 MG Tab PO SCH (11:06)
[2019-09-27] MEDS: Aspirin 81 MG Tab.EC PO SCH (11:06)
[2019-09-27] MEDS: Gabapentin 400 MG Cap PO SCH ×3 (11:07→21:06)
[2019-09-27] MEDS: Hydrochlorothiazide 12.5 MG Cap PO SCH (11:07)
[2019-09-27] MEDS: Carvedilol 12.5 MG Tab PO SCH ×2 (11:08→21:06)
[2019-09-27] MEDS: Diltiazem 120 MG Cap.CD PO SCH (11:08)
[2019-09-27] MEDS: Venlafaxine 150 MG Cap.ER PO SCH (11:09)
[2019-09-27] MEDS: Furosemide 40 MG Tab PO SCH (11:09)
[2019-09-27] MEDS: Warfarin 5 MG Tab PO SCH (12:49)
[2019-09-27] MEDS ORDERED: Benzocaine/Cetylpyridinium/Menthol Lozenge MUCMEM PRN (15:12)
[2019-09-27] MEDS: methylPREDNISolone Sodium Succinate 40 MG/1 ML SDV IVPUSH SCH (15:19)
[2019-09-28] MEDS: methylPREDNISolone Sodium Succinate 40 MG/1 ML SDV IVPUSH SCH ×2 (00:05→08:27)
[2019-09-28] MEDS: Albuterol/Ipratropium 3.0-0.5 MG/3 ML Neb Soln NEB SCH ×4 (07:30→20:42)
[2019-09-28] MEDS: Venlafaxine 150 MG Cap.ER PO SCH (08:27)
[2019-09-28] MEDS: Diltiazem 120 MG Cap.CD PO SCH (08:30)
[2019-09-28] MEDS: Furosemide 40 MG Tab PO SCH (08:31)
[2019-09-28] MEDS: Gabapentin 400 MG Cap PO SCH ×3 (08:31→20:42)
[2019-09-28] MEDS: Hydrochlorothiazide 12.5 MG Cap PO SCH (08:32)
[2019-09-28] MEDS: Carvedilol 12.5 MG Tab PO SCH ×2 (08:32→20:42)
[2019-09-28] MEDS: Lisinopril 10 MG Tab PO SCH (08:33)
[2019-09-28] MEDS: Fluticasone Propionate Nasal Spray 16 GM Bottle NASBOTH SCH (08:33)
[2019-09-28] MEDS: Aspirin 81 MG Tab.EC PO SCH (08:33)
[2019-09-28] MEDS: Enoxaparin 40 MG/0.4 ML Syringe SUBCUT SCH (08:34)
[2019-09-28] MEDS: Magnesium Oxide 400 MG Tab PO SCH ×2 (08:40→20:42)
[2019-09-28] MEDS ORDERED: Magnesium Sulfate/Water 2 GM in Premix Bag 1 BAG IV ONE (09:30)
--- NOTE | 2019-09-28 11:45 | PCM.PN ---
- General Info Date of Service: 09/28/19 Subjective Update: Ms. Salinas has improved since yesterday with significant improvement in shortness of breath. Heart rate with her atrial fibrillation is under much better control. Energy level improving, appetite is excellent. Functional Status: Reports: Tolerating Diet, Ambulating, Urinating - Review of Systems General: Reports: Weakness. Denies: Fever, Chills Pulmonary: Reports: Shortness of Breath. Denies: Pleuritic Chest Pain, Cough, Sputum, Hemoptysis, Wheezing Cardiovascular: Reports: Dyspnea on Exertion. Denies: Chest Pain, Palpitations , Orthopnea, PND, Edema, Lightheadedness Gastrointestinal: Reports: No Symptoms - Patient Data Vitals - Most Recent: Last Vital Signs Temp 96 F 09/28/19 07:00 Pulse 81 09/28/19 11:07 Resp 20 09/28/19 10:00 BP 119/54 L 09/28/19 10:00 Pulse Ox 96 09/28/19 11:07 Weight - Most Recent: 225 lb I&O - Last 24 Hours: Intake & Output 09/27/19 09/28/19 09/28/19 22:59 06:59 14:59 Intake Total 380 360 Output Total 300 300 Balance 80 60 Lab Results Last 24 Hours: Laboratory Results - last 24 hr 09/28/19 09/28/19 09/28/19 Range/Units 04:00 04:00 04:00 WBC 21.5 H (4.5-11.0) K/uL RBC 4.22 (3.30-5.50) M/uL Hgb 10.7 L (12.0-15.0) g/dL Hct 35.7 L (36.0-48.0) % MCV 85 (80-98) fL MCH 25 L (27-31) pg MCHC 30 L (32-36) % Plt Count 335 (150-400) K/uL PT 11.4 (9.5-12.0) sec INR 1.06 (0.80-1.20) Sodium 138 L (140-148) mmol/L Potassium 4.6 (3.6-5.2) mmol/L Chloride 104 (100-108) mmol/L Carbon Dioxide 24 (21-32) mmol/L Anion Gap 14.6 H (5.0-14.0) mmol/L BUN 33 H D (7-18) mg/dL Creatinine 1.3 H (0.6-1.0) mg/dL Est Cr Clr Drug Dosing 47.00 mL/min Estimated GFR (MDRD) 42 L (>60) Glucose 328 H (74-106) mg/dL Calcium 8.6 (8.5-10.1) mg/dL Magnesium 1.7 L (1.8-2.4) mg/dL Med Orders - Current: Current Medications Acetaminophen (Tylenol) 650 mg PO Q4H PRN PRN Reason: Pain (Mild 1-3)/fever Albuterol (Proventil Neb Soln) 2.5 mg NEB Q4H PRN PRN Reason: Shortness Of Breath/wheezing Albuterol/Ipratropium (Duoneb 3.0-0.5 Mg/3 Ml) 3 ml NEB QIDRT [facility] Last Admin: 09/28/19 11:07 Dose: 3 ml Aspirin (Halfprin) 81 mg PO DAILY [facility] Last Admin: 09/28/19 08:33 Dose: 81 mg Benzocaine/Menthol (Cepacol Sore Throat) 1 lozenge MUCMEM Q2H PRN PRN Reason: Sore Throat Last Admin: 09/27/19 15:16 Dose: 1 vitor Carvedilol (Coreg) 12.5 mg PO BID [facility] Last Admin: 09/28/19 08:32 Dose: 12.5 mg Diltiazem HCl (Cardizem Cd) 240 mg PO DAILY [facility] Last Admin: 09/28/19 08:30 Dose: 240 mg Enoxaparin Sodium (Lovenox) 40 mg SUBCUT DAILY [facility] Last Admin: 09/28/19 08:34 Dose: 40 mg Fluticasone Propionate (Flonase) 0 gm NASBOTH DAILY [facility] Last Admin: 09/28/19 08:33 Dose: 2 spray Furosemide (Lasix) 80 mg PO DAILY [facility] Last Admin: 09/28/19 08:31 Dose: 80 mg Gabapentin (Neurontin) 800 mg PO TID [facility] Last Admin: 09/28/19 08:31 Dose: 800 mg Hydrochlorothiazide (Hydrochlorothiazide) 12.5 mg PO DAILY [facility] Last Admin: 09/28/19 08:32 Dose: 12.5 mg Influenza Virus Vaccine (Fluzone Quad [id number] Syringe) 60 mcg IM .ONCE ONE Stop: 09/30/19 09:01 Lisinopril (Prinivil) 10 mg PO DAILY [facility] Last Admin: 09/28/19 08:33 Dose: 10 mg Magnesium Oxide (Magnesium Oxide) 400 mg PO BID [facility] Last Admin: 09/28/19 08:40 Dose: 400 mg Ondansetron HCl (Zofran) 4 mg IV Q4H PRN PRN Reason: Nausea/Vomiting Polyethylene Glycol (Miralax) 17 gm PO DAILY PRN PRN Reason: Constipation Prednisone (Prednisone) 40 mg PO WITHBREAKFAST [facility] Sodium Chloride (Saline Flush) 10 ml FLUSH ASDIRECTED PRN PRN Reason: Keep Vein Open Venlafaxine HCl (Effexor Xr) 300 mg PO DAILY [facility] Last Admin: 09/28/19 08:27 Dose: 300 mg Warfarin Sodium (Coumadin) 5 mg PO DAILY@1300 [facility] Last Admin: 09/27/19 12:49 Dose: 5 mg Discontinued Medications Diltiazem HCl (Diltiazem) 20 mg IVPUSH ONETIME ONE Stop: 09/27/19 07:50 Last Admin: 09/27/19 07:56 Dose: 20 mg Diltiazem HCl (Diltiazem) 20 mg IVPUSH ONETIME ONE Stop: 09/27/19 09:35 Last Admin: 09/27/19 09:47 Dose: 20 mg Furosemide (Lasix) 40 mg IVPUSH ONETIME ONE Stop: 09/27/19 07:50 Last Admin: 09/27/19 08:20 Dose: 40 mg Diltiazem HCl 125 mg/ Sodium (Chloride) 125 mls @ 5 mls/hr IV TITRATE [facility]; Protocol Last Titration: 09/27/19 15:07 Dose: 2.5 mg/hr, 2.5 mls/hr Magnesium Sulfate 2 gm/ Premix 50 mls @ 25 mls/hr IV ONETIME ONE Stop: 09/28/19 11:29 Last Admin: 09/28/19 08:40 Dose: 25 mls/hr Methylprednisolone Sodium Succinate (Solu-Medrol) 125 mg IVPUSH ONETIME ONE Stop: 09/27/19 07:50 Last Admin: 09/27/19 07:59 Dose: 125 mg Methylprednisolone Sodium Succinate (Solu-Medrol) 40 mg IVPUSH Q8H [facility] Last Admin: 09/28/19 08:27 Dose: 40 mg - Exam Quality Assessment: DVT Prophylaxis General: Alert, Oriented, Cooperative, No Acute Distress Lungs: Normal Respiratory Effort, Decreased Breath Sounds. No: Rales, Rhonchi, Wheezing Cardiovascular: Regular Rate, No Murmurs, Irregular Rhythm GI/Abdominal Exam: Soft, Non-Tender, No Organomegaly, No Distention Extremities: Non-Tender, No Pedal Edema - Problem List Review Problem List Initiated/Reviewed/Updated: Yes - My Orders Last 24 Hours: My Active Orders 09/27/19 11:00 Albuterol/Ipratropium [DuoNeb 3.0-0.5 MG/3 ML] 3 ml NEB QIDRT 09/27/19 13:00 Warfarin [Coumadin] 5 mg PO DAILY@1300 09/27/19 15:12 Benzocaine/Cetylpyrd/Menthol [Cepacol Sore Throat] 1 lozenge MUCMEM Q2H PRN 09/28/19 08:08 Influenza Vaccine Charge [RC] .DISCHARGE 09/28/19 09:00 Magnesium Oxide 400 mg PO BID 09/30/19 09:00 FLU Vacc [id number](6MOS+)/PF [Fluzone Quad [id number] Syringe] 60 mcg IM .ONCE ONE - Plan Plan:: ASSESSMENT AND PLAN COPD EXACERBATION-proved from admissionwith much less shortness of breath and cough -Supplemental oxygen -Nebulizer therapy with albuterol and duo nebs -maribel 40 mg by mouth daily ATRIAL FIBRILLATION WITH RAPID VENTRICULAR [id number] history she is been off of rate controlling medications and anticoagulation over the past month. -iscontinue diltiazem infusion -Resume oral Coreg and diltiazem -INR in a.m. - warfarin 5 mg by mouth daily URINE POSITIVE FOR METHAMPHETAMINE -Monitor closely for withdrawal CONGESTIVE HEART FAILURE-evaluation seems to be well compensated -Resume usual outpatient medications MAINTENANCE ISSUES -DVT prophylaxis; Lovenox 40 mg subcutaneous daily, until INR is therapeutic -GI prophylaxis; not indicated -Millan catheter; placed in the emergency department, will be removed on admission -Nutrition; 2 g sodium diet -Nicotine dependence; not required CODE STATUS-FULL CODE ADMISSION STATUS-patient will be admitted to inpatient status, expect at least a 2 night hospital stay for evaluation and management of problems as outlined above. At the time of this admission I do not reasonably expected evaluation and management of this problem will require more than a 96 hour hospital stay. DISPOSITION-anticipate discharge to home after the hospital stay. PRIMARY CARE PROVIDER-
[2019-09-28] MEDS: Warfarin 5 MG Tab PO SCH (13:13)
[2019-09-29] MEDS: Albuterol/Ipratropium 3.0-0.5 MG/3 ML Neb Soln NEB SCH ×2 (06:58→11:02)
[2019-09-29] MEDS ORDERED: predniSONE 20 MG Tab PO SCH (08:00)
[2019-09-29] MEDS: Gabapentin 400 MG Cap PO SCH (08:56)
[2019-09-29] MEDS: Venlafaxine 150 MG Cap.ER PO SCH (09:00)
[2019-09-29] MEDS: Fluticasone Propionate Nasal Spray 16 GM Bottle NASBOTH SCH (09:00)
[2019-09-29] MEDS: Furosemide 40 MG Tab PO SCH (09:01)
[2019-09-29] MEDS: Magnesium Oxide 400 MG Tab PO SCH (09:01)
[2019-09-29] MEDS: Enoxaparin 40 MG/0.4 ML Syringe SUBCUT SCH (09:01)
[2019-09-29] MEDS: Aspirin 81 MG Tab.EC PO SCH (09:01)
[2019-09-29] MEDS: Hydrochlorothiazide 12.5 MG Cap PO SCH (09:01)
[2019-09-29] MEDS: Diltiazem 120 MG Cap.CD PO SCH (09:03)
[2019-09-29] MEDS: Carvedilol 12.5 MG Tab PO SCH (09:05)
[2019-09-29] MEDS: Lisinopril 10 MG Tab PO SCH (09:05)
[2019-09-29 09:06] VITALS: BP 118/85
--- NOTE | 2019-09-29 09:57 | PCM.DCSUM1 ---
Discharge Summary - Hospital Course Brief History: Ms. Salinas is a 58-year-old woman who was admitted through the emergency department with weakness and shortness of breath with hypoxia, secondary to COPD exacerbation and atrial fibrillation with rapid ventricular response. - Discharge Data Discharge Date: 09/29/19 Discharge Disposition: Home, Self-Care 01 Condition: Fair - Referral to Home Health Primary Care Physician: PCP None - Discharge Diagnosis/Problem(s) (1) Atrial fibrillation with rapid ventricular response SNOMED Code(s): 828951948807994 ICD Code: I48.91 - UNSPECIFIED ATRIAL FIBRILLATION Status: Acute Current Visit: Yes (2) Acute exacerbation of chronic obstructive pulmonary disease (COPD) SNOMED Code(s): 293628000 ICD Code: J44.1 - CHRONIC OBSTRUCTIVE PULMONARY DISEASE W (ACUTE) EXACERBATION Status: Acute Current Visit: Yes (3) CHF (congestive heart failure) SNOMED Code(s): 91885610 ICD Code: I50.9 - HEART FAILURE, UNSPECIFIED Status: Acute Current Visit : Yes Qualifiers: Heart failure chronicity: acute on chronic (4) Methamphetamine use SNOMED Code(s): 923533031 ICD Code: F15.10 - OTHER STIMULANT ABUSE, UNCOMPLICATED Status: Acute Current Visit: Yes - Patient Summary/Data Hospital Course: Ms. Salinas is a 58-year-old woman who was admitted through the emergency department with weakness and shortness of breath secondary to COPD exacerbation and atrial fibrillation with rapid ventricular response. She has a known history of oxygen dependent COPD, but has been unable to use her oxygen over the past month. In addition she has a known history of long-standing atrial fibrillation as well as congestive heart failure and has been off of all her medications over the past month. This morning was severely short of breath, when EMS arrived at her home oxygen saturations were in the low 70s and she was noted to be dusky in appearance. She was brought to the emergency department for further evaluation was noted to be in atrial fibrillation with rapid ventricular response, heart rates in the 130 to 140 range. She was placed on supplemental oxygen and has received nebulizer therapy in addition to Solu- Medrol. White blood cell count is modestly elevated but she denies recent fever or cough productive of colored sputum. Heart rate transiently came under better control after she was given 20 mg of IV diltiazem. Saturations have improved with supplemental oxygen and nebulizer therapy. On admission she was continued on continuous infusion of diltiazem which did result in good control of her heart rate. She was given IV Solu-Medrol and then transitioned to oral prednisone, she will be discharged with 2 additional days of oral prednisone. There was no evidence of underlying infection and she was not treated with antibiotics during hospitalization. After usual medications were restarted including Coreg and oral diltiazem heart rate remained under good control and she was taken off of the continuous infusion of diltiazem. She will be discharged home on her usual medications and will be re-supplied with home oxygen. Activity will be as tolerated and she will be on a 2 g sodium diet. Follow-up appointment will be scheduled with primary care provider within one week. She will be scheduled for Coumadin clinic appointment for October 01. - Patient Instructions Diet: Low Sodium Activity: As Tolerated - Discharge Plan *PRESCRIPTION DRUG MONITORING PROGRAM REVIEWED*: Not Applicable *COPY OF PRESCRIPTION DRUG MONITORING REPORT IN PATIENT KIRAN: Not Applicable Prescriptions/Med Rec: Albuterol Sulfate [Proair Hfa] 2 puff INH Q4H PRN #1 hfa.aer.ad PRN Reason: Dyspnea Albuterol/Ipratropium [Combivent Respimat] 2 inh INH QID PRN #1 inhaler PRN Reason: Dyspnea Aspirin [Low Dose Aspirin EC] 81 mg PO DAILY #100 tablet. Carvedilol [Coreg] 12.5 mg PO BID #60 tablet Diltiazem HCl [Diltiazem 24Hr Cd] 240 mg PO DAILY #30 cap.er.24h Fluticasone Propionate [Flonase] 2 spray TOP DAILY #1 bottle Furosemide 80 mg PO DAILY #30 tablet Gabapentin [Neurontin] 400 mg PO TID #90 capsule Lisinopril/Hydrochlorothiazide [Lisinopril-Hctz 10-12.5 mg Tab] 1 each PO DAILY #30 tablet Loratadine [Claritin] 10 mg PO DAILY PRN #30 tablet PRN Reason: Allergies Magnesium Oxide 400 mg PO BID #60 tablet Nitroglycerin 0.4 mg SL ASDIRECTED PRN #50 tab.subl PRN Reason: Chest Pain predniSONE 40 mg PO WITHBREAKFAST #4 tablet Venlafaxine HCl [Venlafaxine HCl ER] 300 mg PO DAILY #60 tab.er.24 Warfarin [Coumadin] 5 mg PO DAILY #50 tablet Home Medications: Home Meds Acetaminophen 650 mg PO Q4H PRN #100 tablet 03/30/15 [Rx] Lisinopril/Hydrochlorothiazide [Lisinopril-Hctz 10-12.5 mg Tab] 10 - 12.5 mg PO DAILY #30 tablet 08/28/18 [Rx] Albuterol Sulfate [Proair Hfa] 2 puff INH Q4H PRN #1 hfa.aer.ad 09/29/19 [Rx] Albuterol/Ipratropium [Combivent Respimat] 2 inh INH QID PRN #1 inhaler [Rx] Aspirin [Low Dose Aspirin EC] 81 mg PO DAILY #100 tablet.dr 09/29/19 [Rx] Carvedilol [Coreg] 12.5 mg PO BID #60 tablet 09/29/19 [Rx] Diltiazem HCl [Diltiazem 24Hr Cd] 240 mg PO DAILY #30 cap.er.24h 09/29/19 [Rx] Fluticasone Propionate [Flonase] 2 spray TOP DAILY #1 bottle 09/29/19 [Rx] Furosemide 80 mg PO DAILY #30 tablet 09/29/19 [Rx] Gabapentin [Neurontin] 400 mg PO TID #90 capsule 09/29/19 [Rx] Lisinopril/Hydrochlorothiazide [Lisinopril-Hctz 10-12.5 mg Tab] 1 each PO DAILY #30 tablet 09/29/19 [Rx] Loratadine [Claritin] 10 mg PO DAILY PRN #30 tablet 09/29/19 [Rx] Magnesium Oxide 400 mg PO BID #60 tablet 09/29/19 [Rx] Nitroglycerin 0.4 mg SL ASDIRECTED PRN #50 tab.subl 09/29/19 [Rx] Venlafaxine HCl [Venlafaxine HCl ER] 300 mg PO DAILY #60 tab.er.24 09/29/19 [Rx] Warfarin [Coumadin] 5 mg PO DAILY #50 tablet 09/29/19 [Rx] predniSONE 40 mg PO WITHBREAKFAST #4 tablet 09/29/19 [Rx] Referrals: Haleigh Babin NP [Advanced RN Practitioner] - 10/05/19 8:30 am - Discharge Summary/Plan Comment DC Time >30 min.: No - Patient Data Vitals - Most Recent: Last Vital Signs Temp 95.5 F 09/29/19 08:00 Pulse 85 09/29/19 09:05 Resp 16 09/29/19 08:00 BP 118/85 09/29/19 09:05 Pulse Ox 96 09/29/19 08:00 Weight - Most Recent: 225 lb I&O - Last 24 hours: Intake & Output 09/28/19 09/29/19 09/29/19 22:59 06:59 14:59 Intake Total 400 Balance 400 Lab Results - Last 24 hrs: Laboratory Results - last 24 hr 09/29/19 09/29/19 Range/Units 05:08 05:08 PT 13.1 H (9.5-12.0) sec INR 1.23 H (0.80-1.20) Sodium 138 L (140-148) mmol/L Potassium 5.0 (3.6-5.2) mmol/L Chloride 105 (100-108) mmol/L Carbon Dioxide 25 (21-32) mmol/L Anion Gap 13.0 (5.0-14.0) mmol/L BUN 56 H D (7-18) mg/dL Creatinine 1.7 H (0.6-1.0) mg/dL Est Cr Clr Drug Dosing 35.94 mL/min Estimated GFR (MDRD) 31 L (>60) Glucose 255 H (74-106) mg/dL Calcium 8.6 (8.5-10.1) mg/dL Magnesium 2.4 D (1.8-2.4) mg/dL Med Orders - Current: Current Medications Acetaminophen (Tylenol) 650 mg PO Q4H PRN PRN Reason: Pain (Mild 1-3)/fever Albuterol (Proventil Neb Soln) 2.5 mg NEB Q4H PRN PRN Reason: Shortness Of Breath/wheezing Albuterol/Ipratropium (Duoneb 3.0-0.5 Mg/3 Ml) 3 ml NEB QIDRT COUNTS INCLUDE 234 BEDS AT THE [facility] Last Admin: 09/29/19 06:58 Dose: 3 ml Aspirin (Halfprin) 81 mg PO DAILY COUNTS INCLUDE 234 BEDS AT THE [facility] Last Admin: 09/29/19 09:01 Dose: 81 mg Benzocaine/Menthol (Cepacol Sore Throat) 1 lozenge MUCMEM Q2H PRN PRN Reason: Sore Throat Last Admin: 09/27/19 15:16 Dose: 1 vitor Carvedilol (Coreg) 12.5 mg PO BID COUNTS INCLUDE 234 BEDS AT THE [facility] Last Admin: 09/29/19 09:05 Dose: 12.5 mg Diltiazem HCl (Cardizem Cd) 240 mg PO DAILY COUNTS INCLUDE 234 BEDS AT THE [facility] Last Admin: 09/29/19 09:03 Dose: 240 mg Enoxaparin Sodium (Lovenox) 40 mg SUBCUT DAILY COUNTS INCLUDE 234 BEDS AT THE [facility] Last Admin: 09/29/19 09:01 Dose: 40 mg Fluticasone Propionate (Flonase) 0 gm NASBOTH DAILY COUNTS INCLUDE 234 BEDS AT THE [facility] Last Admin: 09/29/19 09:00 Dose: 2 spray Furosemide (Lasix) 80 mg PO DAILY COUNTS INCLUDE 234 BEDS AT THE [facility] Last Admin: 09/29/19 09:01 Dose: 80 mg Gabapentin (Neurontin) 800 mg PO TID COUNTS INCLUDE 234 BEDS AT THE [facility] Last Admin: 09/29/19 08:56 Dose: 800 mg Hydrochlorothiazide (Hydrochlorothiazide) 12.5 mg PO DAILY COUNTS INCLUDE 234 BEDS AT THE [facility] Last Admin: 09/29/19 09:01 Dose: 12.5 mg Influenza Virus Vaccine (Fluzone Quad 5585-1400 Syringe) 60 mcg IM .ONCE ONE Stop: 09/30/19 09:01 Lisinopril (Prinivil) 10 mg PO DAILY COUNTS INCLUDE 234 BEDS AT THE [facility] Last Admin: 09/29/19 09:05 Dose: 10 mg Magnesium Oxide (Magnesium Oxide) 400 mg PO BID COUNTS INCLUDE 234 BEDS AT THE [facility] Last Admin: 09/29/19 09:01 Dose: 400 mg Ondansetron HCl (Zofran) 4 mg IV Q4H PRN PRN Reason: Nausea/Vomiting Last Admin: 09/28/19 15:51 Dose: 4 mg Polyethylene Glycol (Miralax) 17 gm PO DAILY PRN PRN Reason: Constipation Prednisone (Prednisone) 40 mg PO WITHBREAKFAST COUNTS INCLUDE 234 BEDS AT THE [facility] Last Admin: 09/29/19 08:55 Dose: 40 mg Sodium Chloride (Saline Flush) 10 ml FLUSH ASDIRECTED PRN PRN Reason: Keep Vein Open Venlafaxine HCl (Effexor Xr) 300 mg PO DAILY COUNTS INCLUDE 234 BEDS AT THE [facility] Last Admin: 09/29/19 09:00 Dose: 300 mg Warfarin Sodium (Coumadin) 5 mg PO DAILY@1300 COUNTS INCLUDE 234 BEDS AT THE [facility] Last Admin: 09/28/19 13:13 Dose: 5 mg Discontinued Medications Diltiazem HCl (Diltiazem) 20 mg IVPUSH ONETIME ONE Stop: 09/27/19 07:50 Last Admin: 09/27/19 07:56 Dose: 20 mg Diltiazem HCl (Diltiazem) 20 mg IVPUSH ONETIME ONE Stop: 09/27/19 09:35 Last Admin: 09/27/19 09:47 Dose: 20 mg Furosemide (Lasix) 40 mg IVPUSH ONETIME ONE Stop: 09/27/19 07:50 Last Admin: 09/27/19 08:20 Dose: 40 mg Diltiazem HCl 125 mg/ Sodium (Chloride) 125 mls @ 5 mls/hr IV TITRATE PATRICK; Protocol Last Titration: 09/27/19 15:07 Dose: 2.5 mg/hr, 2.5 mls/hr Magnesium Sulfate 2 gm/ Premix 50 mls @ 25 mls/hr IV ONETIME ONE Stop: 09/28/19 11:29 Last Admin: 09/28/19 08:40 Dose: 25 mls/hr Methylprednisolone Sodium Succinate (Solu-Medrol) 125 mg IVPUSH ONETIME ONE Stop: 09/27/19 07:50 Last Admin: 09/27/19 07:59 Dose: 125 mg Methylprednisolone Sodium Succinate (Solu-Medrol) 40 mg IVPUSH Q8H PATRICK Last Admin: 09/28/19 08:27 Dose: 40 mg - Exam Quality Assessment: Reports: DVT Prophylaxis General: Reports: Alert, Oriented, Cooperative, No Acute Distress Lungs: Reports: Clear to Auscultation, Normal Respiratory Effort Cardiovascular: Reports: Regular Rate, No Murmurs, Irregular Rhythm GI/Abdominal Exam: Soft, Non-Tender, No Organomegaly, No Distention Extremities: Non-Tender, No Pedal Edema
[2019-09-29 11:03] VITALS: PULSE 77
[2019-09-29] MEDS: Warfarin 5 MG Tab PO SCH (12:37)
[2019-09-30] MEDS ORDERED: FLU Vacc QS2019-20(6MOS+)/PF 60 MCG/0.5 ML SYRINGE IM ONE (09:00)
== END 2019-09-29 13:34 | disposition home or self-care (01) | DRG 192 ==
LOC: JP.ED 07:34 → JP.ICU 08:39
PROVIDERS: ADMIT Hospitalist; ATTEND Hospitalist
DX: J44.1 Chronic obstructive pulmonary disease with (acute) exacerbation (principal); I48.91 Unspecified atrial fibrillation; I50.9 Heart failure, unspecified; F15.10 Other stimulant abuse, uncomplicated; I11.0 Hypertensive heart disease with heart failure; G89.29 Other chronic pain; M54.9 Dorsalgia, unspecified; E03.9 Hypothyroidism, unspecified; F43.10 Post-traumatic stress disorder, unspecified; Z90.49 Acquired absence of other specified parts of digestive tract; Z90.89 Acquired absence of other organs; Z98.51 Tubal ligation status; Z87.891 Personal history of nicotine dependence; Z99.81 Dependence on supplemental oxygen; Z87.440 Personal history of urinary (tract) infections; Z79.899 Other long term (current) drug therapy; Z79.01 Long term (current) use of anticoagulants; Z79.82 Long term (current) use of aspirin; Z88.5 Allergy status to narcotic agent
CPT/HCPCS: 36415; 71045; 80048; 80053; 80305-QW; 81001; 83735; 84484; 85025; 85027; 85610; 93005; 93010; 94640; 94762; A9270-GY; J1650; J1940; J2405; J2920; J2930; J3475; J3490; J7030; J7620-GY